=== PATIENT | female | born 1930 | race Caucasian/White ===

== ENCOUNTER 2018-02-27 12:08 | Inpatient (IN) ==
--- NOTE | 2018-02-27 19:15 | P.HPCC ---
History of Present Illness Service: Critical care medicine Primary Care Physician: UNKNOWN Chief Complaint: shortness of breath History of Present Illness: 87yF with history of CHF, COPD, found to be altered. taken to OSH where she was significantly hypoxic. CT chest/CXR demonstrated dense LLL consolidation. wbc elevated. patient is DNR/DNI and daughter wishes to honor this. placed on BiPAP. given ivf, but persistently hypotensive, so placed on norepinephrine. ROS unobtainable due to her altered mentation. no additional information available from the patient- remainder of the history from the daughter and from medical record. Inpatient Certification: I certify that the inpatient services were ordered in accordance with Medicare regulations governing the order. This includes certification that hospital inpatient services are reasonable and necessary and in the case of services not specified as inpatient-only under 42 CFR 419.22(n), that they are appropriately provided as inpatient services in accordance to with the 2-midnight benchmark under 43 CFR 412.3(e) Review of Systems unobtainable due to mental status PMFSH - History History Provided By: Family Member, Medical Record - Medical History Medical History: Medical History (Last Reviewed 02/27/18 @ 20:38 by Conrad Beckford MD) Anxiety CHF (congestive heart failure) COPD (chronic obstructive pulmonary disease) Epilepsy Hypertension Schizo affective schizophrenia - Surgical History Surgical History: Surgical History (Last Reviewed 02/27/18 @ 20:38 by Conrad Beckford MD) Hx of shoulder surgery - Family History Family History: Family History (Last Updated 02/27/18 @ 20:38 by Conrad Beckford MD) Other Family history non-contributory - Social History I have reviewed the patient's Social History: Yes - Tobacco History Smoking Status: Former smoker - Alcohol History How Often Do You Have a Drink Containing Alcohol: Never - Substance Use History Substance History: No History of Abuse Medications and Allergies Allergies Allergy/AdvReac Type Severity Reaction Status Date / Time No Known Allergies Allergy Verified 02/27/18 12:29 Home Medications Medication Instructions Recorded Confirmed Type acetaminophen [Mapap 500 mg PO DAILY PRN 02/27/18 02/27/18 History (acetaminophen)] amlodipine 10 mg PO DAILY 02/27/18 02/27/18 History citalopram 40 mg PO DAILY 02/27/18 02/27/18 History docusate sodium [Colace] 100 mg PO DAILY 02/27/18 02/27/18 History ferrous sulfate 325 mg PO DAILY 02/27/18 02/27/18 History furosemide 10 mg PO DAILY 02/27/18 02/27/18 History ipratropium bromide 2.5 ml INHALATION Q6-8H PRN 02/27/18 02/27/18 History levetiracetam 750 mg PO BID 02/27/18 02/27/18 History melatonin 3 mg PO HS PRN 02/27/18 02/27/18 History quetiapine [Seroquel] 25 mg PO DAILY 02/27/18 02/27/18 History risperidone [Risperdal] 0.5 mg PO BID 02/27/18 02/27/18 History temazepam 15 mg PO HS 02/27/18 02/27/18 History Exam Vital signs: Vital Signs 02/27/18 18:44 Pulse Oximetry 92 L Intake & Output 02/27/18 02/27/18 02/28/18 06:59 18:59 06:59 Weight 48.8 kg Narrative: GENERAL: Frail elderly female, lying in bed, in respiratory distress. BiPAP in place. HEENT: Normocephalic. Atraumatic. Pupils equal, round, reactive, conjugate. Mucous membranes are dry NECK: Trachea is midline. JVD approximately 3 cm above the clavicle. CHEST: BiPAP in place. Labored and slightly tachypneic. Using accessory muscles. Equal chest rise. CARDIOVASCULAR: Normal rate, regular rhythm. Appears sinus by telemetry. Norepinephrine at 8 mcg/min. ABDOMEN: Soft, nontender, nondistended. No guarding. MUSCULOSKELETAL: Pulses 2+. No peripheral edema. NEUROLOGICAL: RASS -4. Grimaces to painful stimuli. Does not follow commands. Septic Shock Reassessment Septic shock perfusion: reassessment completed Caprini VTE Risk Assessment Caprini VTE Risk Assessment: Moderate/High Risk (score >= 2) Caprini Risk Assessment Model: Point Value = 1 Point Value = 2 Point Value = 3 Point Value = 5 Age 41-60 Minor surgery BMI > 25 kg/m2 Swollen legs Varicose veins or History of unexplained or recurrent spontaneous Oral contraceptives or hormone replacement Sepsis (< 1 month) Serious lung disease, including pneumonia (< 1 month) Abnormal pulmonary function Acute myocardial infarction Congestive heart failure (< 1 month) History of inflammatory bowel disease Medical patient at bed rest Age 61-74 Arthroscopic surgery Major open surgery (> 45 min) Laparoscopic surgery (> 45 min) Malignancy Confined to bed (> 72 hours) Immobilizing plaster cast Central venous access Age >= 75 History of VTE Family history of VTE Factor V Leiden Prothrombin [id number] Lupus anticoagulant Anticardiolipin antibodies Elevated serum homocysteine Heparin-induced thrombocytopenia Other congenital or acquired thrombophilia Stroke (< 1 month) Elective arthroplasty Hip, pelvis, or leg fracture Acute spinal cord injury (< 1 month) Prophylaxis Regimen: Total Risk Factor Score Risk Level Prophylaxis Regimen 0-1 Low Early ambulation 2 Moderate Order ONE of the following: *Sequential Compression Device (SCD) *Heparin 5000 units SQ BID 3-4 Higher Order ONE of the following medications: *Heparin 5000 units SQ TID *Enoxaparin/Lovenox 40 mg SQ daily (WT < 150 kg, CrCl > 30 mL/min) *Enoxaparin/Lovenox 30 mg SQ daily (WT < 150 kg, CrCl > 10-29 mL/min) *Enoxaparin/Lovenox 30 mg SQ BID (WT < 150 kg, CrCl > 30 mL/min) AND/OR *Sequential Compression Device (SCD) 5 or more Highest Order ONE of the following medications: *Heparin 5000 units SQ TID (Preferred with Epidurals) *Enoxaparin/Lovenox 40 mg SQ daily (WT < 150 kg, CrCl > 30 mL/min) *Enoxaparin/Lovenox 30 mg SQ daily (WT < 150 kg, CrCl > 10-29 mL/min) *Enoxaparin/Lovenox 30 mg SQ BID (WT < 150 kg, CrCl > 30 mL/min) AND *Sequential Compression Device (SCD) Assessment and Plan - Assessment and Plan Plan: Assessment: 87-year-old female with multiple chronic medical comorbidities including COPD and CHF who presents with severe community-acquired left lower lobe pneumonia and associated septic shock, hypoxic respiratory failure, metabolic encephalopathy. Very critically ill. I expressed my concern to the daughter that she may not survive this hospitalization given her acute on chronic medical comorbidities. The daughter wishes to honor the patient's DNR/ DNI CODE STATUS, which I agree with. We will continue noninvasive positive pressure ventilation, antibiotics, fluids, vasopressors. Active problems: Acute metabolic encephalopathy Septic shock Community acquired left lower lobe pneumonia Acute hypoxic respiratory failure requiring noninvasive positive pressure ventilation COPD CHF, unknown type Plan: Admit to ICU Frequent neurochecks Avoid long-acting sedatives Continue BiPAP Continue DNR DNI CODE STATUS Wean FiO2 for goal SPO2 greater than 90% Vancomycin with pharmacy dosing Continue Zosyn Add azithromycin for atypical coverage Follow blood cultures Check sputum culture IV fluids Continue Levophed for goal map greater than 65 Palliative care consultation N.p.o. SCDs Subcu heparin Pepcid Nebs Critically ill. This patient remains critically ill with one or more organ systems which are or may become a threat to life. I have spent in excess of 47 minutes discontinuously in the care and management of this patient. This time is exclusive of procedures, and includes, but is not limited to, evaluation of the patient, review of the medical record, discussions with family, consultants, nursing staff, or respiratory therapy, and documentation in the medical record.
[2018-02-27] MEDS ORDERED: Magnesium Sulfate Inj 2 GM in Sodium Chlor 0.9% Inj 96 ML IV.SIG PRN (20:17)
[2018-02-27] MEDS ORDERED: HYDROmorphone PF Inj 1 MG/ML Ampul IV.PUSH PRN (20:17)
[2018-02-27] MEDS ORDERED: Sodium Phosphate Inj 30 MMOL in Sodium Chlor 0.9% Inj 250 ML IV.SIG PRN (20:17)
[2018-02-27] MEDS ORDERED: Potassium Phosphate Inj 30 MMOL in Sodium Chlor 0.9% Inj 250 ML IV.SIG PRN (20:17)
[2018-02-27] MEDS ORDERED: Potassium Chloride 25 MEQ Effervescent Tablet PO PRN (20:17)
[2018-02-27] MEDS ORDERED: Bisacodyl 10 MG Supp RECTAL PRN (20:17)
[2018-02-27] MEDS ORDERED: Magnesium Oxide 400 MG Tablet PO PRN (20:17)
[2018-02-27] MEDS ORDERED: Dextrose 50% in Water 50 ML Vial IV.PUSH PRN (20:17)
[2018-02-27] MEDS ORDERED: Magnesium Sulfate Inj 4 GM in Sodium Chlor 0.9% Inj 92 ML IV.SIG PRN (20:17)
[2018-02-27] MEDS ORDERED: Potassium Chlor 40 mEq Premix 40 MEQ/100 ML PIGGYBACK IV.SIG PRN ×2 (20:17)
[2018-02-27] MEDS ORDERED: Potassium Phosphate 500 MG Soluble Tablet PO PRN ×2 (20:17)
[2018-02-27] MEDS ORDERED: Potassium Chlor 20 mEq Premix 20 MEQ/100 ML PIGGYBACK IV.SIG PRN ×2 (20:17)
[2018-02-27] MEDS ORDERED: Famotidine PF Inj 20 MG/2 ML Vial IV.PUSH SCH (21:00)
[2018-02-27] MEDS: Sod Chloride 0.9% Inj 1,000 ML IV.CONT SCH (21:41)
[2018-02-27] MEDS: Azithromycin Inj 500 MG in Sodium Chlor 0.9% Inj 250 ML IV.SIG SCH (21:41)
[2018-02-27] MEDS: Piperacil/Tazo 4.5 GM Premix 4.5 GM/100 ML BAG IV.SIG SCH (21:41)
[2018-02-27] MEDS: Polyethylene Glycol 3350 17 GM Packet PO SCH (21:42)
[2018-02-27] MEDS: Heparin - SQ 10,000 UNITS/ML Vial SQ SCH (21:42)
[2018-02-27] MEDS: Senna/Docusate Sodium 8.6/50 MG Tablet PO SCH (21:43)
[2018-02-27] MEDS: Insulin NovoLIN Regular Correctional Sugar Inj SQ SCH (23:54)
[2018-02-28] MEDS ORDERED: Chlorhexidine Gluconate 2% 1 Pack (2 Cloths) TOPICAL PRN ×2 (04:00)
[2018-02-28] MEDS: Piperacil/Tazo 4.5 GM Premix 4.5 GM/100 ML BAG IV.SIG SCH ×4 (04:08→21:41)
[2018-02-28] MEDS: Chlorhexidine Gluconate 2% 1 Pack (2 Cloths) TOPICAL SCH ×2 (04:09)
[2018-02-28 04:16] LABS: Baso % (Auto) 0.2 % (0.0-2.0); Eos % (Auto) 0.1 % (0.0-4.0); Hematocrit 28.6 % (35.0-46.0); Hemoglobin 9.1 gm/dL (11.6-15.3); Lymph # (Auto) 0.5 th/mm3 (1.0-4.8); Lymph % (Auto) 4.2 % (9.0-44.0); Mean Corpuscular Hemoglobin 30.7 pg (27.0-34.0); Mean Corpuscular Volume 96.2 fL (80.0-100.0); Mean Platelet Volume 7.7 fL (7.0-11.0); Mono # (Auto) 0.6 th/mm3 (0.0-0.9); Mono % (Auto) 5.2 % (0.0-8.0); Neut # (Auto) 10.1 th/mm3 (1.8-7.7); Neut % (Auto) 90.3 % (16.0-70.0); Platelet Count 211 th/mm3 (150-450); Red Blood Count 2.97 mil/mm3 (4.00-5.30); Red Cell Distribution Width 15.3 % (11.6-17.2); White Blood Count 11.1 th/mm3 (4.0-11.0)
[2018-02-28 05:01] LABS: Calcium 7.4 mg/dL (8.5-10.1); Carbon Dioxide 30.2 meq/L (21.0-32.0); Magnesium 1.8 mg/dL (1.5-2.5); Phosphorus 2.7 mg/dL (2.5-4.9); Potassium 4.1 meq/L (3.5-5.1)
[2018-02-28 05:27] LABS: Albumin 2.2 g/dL (3.4-5.0); Calcium-Albumin Corrected 8.8 mg/dL (8.5-10.1)
[2018-02-28] MEDS: Sod Chloride 0.9% Inj 1,000 ML IV.CONT SCH (05:39)
[2018-02-28] MEDS: Insulin NovoLIN Regular Correctional Sugar Inj SQ SCH ×3 (05:40→17:55)
[2018-02-28] MEDS: Heparin - SQ 10,000 UNITS/ML Vial SQ SCH ×3 (05:40→21:41)
--- NOTE | 2018-02-28 05:56 | P.PNCC ---
Subjective Subjective Remarks/Hospital Course: 87yF with history of CHF, COPD, found to be altered. taken to OSH where she was significantly hypoxic. CT chest/CXR demonstrated dense LLL consolidation. wbc elevated. patient is DNR/DNI and daughter wishes to honor this. placed on BiPAP. given ivf, but persistently hypotensive, so placed on norepinephrine. ROS unobtainable due to her altered mentation. no additional information available from the patient- remainder of the history from the daughter and from medical record. Subjective 02/28: Resting in bed in no acute distress. Currently on Venturi mask 50%. Was on intermittent BiPAP overnight with FiO2 70%. Intermittently confused. Understands [place]. Objective Vital Signs / I&O: Vital Signs 02/27/18 18:44 02/27/18 19:56 02/27/18 20:00 Temperature 97.2 F L Pulse Rate 53 L Respiratory Rate 20 Blood Pressure 106/53 L Pulse Oximetry 92 L 96 94 L 02/27/18 21:00 02/27/18 22:00 02/27/18 23:00 Temperature Pulse Rate 55 L 67 66 Respiratory Rate 21 20 19 Blood Pressure 111/51 L 117/59 L 96/49 L Pulse Oximetry 93 L 93 L 95 02/27/18 23:30 02/27/18 23:31 02/27/18 23:45 Temperature Pulse Rate 64 62 Respiratory Rate 8 L 9 L Blood Pressure 92/46 L 89/43 L Pulse Oximetry 95 95 02/27/18 23:52 02/28/18 00:00 02/28/18 00:15 Temperature 100 F H Pulse Rate 68 81 64 Respiratory Rate 18 24 14 Blood Pressure 107/53 L 94/47 L Pulse Oximetry 92 L 91 L 95 02/28/18 00:30 02/28/18 00:45 02/28/18 01:00 Temperature Pulse Rate 64 64 65 Respiratory Rate 17 11 L 9 L Blood Pressure 101/50 L 105/53 L 107/53 L Pulse Oximetry 96 97 96 02/28/18 01:15 02/28/18 01:30 02/28/18 01:45 Temperature Pulse Rate 65 69 74 Respiratory Rate 10 L 4 L 14 Blood Pressure 104/52 L 117/55 L 108/55 L Pulse Oximetry 96 97 97 02/28/18 02:00 02/28/18 02:15 02/28/18 02:30 Temperature Pulse Rate 76 76 73 Respiratory Rate 14 11 L 18 Blood Pressure 118/56 L 124/56 L 117/57 L Pulse Oximetry 98 97 97 02/28/18 02:45 02/28/18 03:00 02/28/18 03:15 Temperature Pulse Rate 71 74 67 Respiratory Rate 15 19 18 Blood Pressure 116/57 L 107/53 L 110/49 L Pulse Oximetry 95 96 96 02/28/18 03:30 02/28/18 03:45 02/28/18 03:46 Temperature Pulse Rate 74 80 Respiratory Rate 31 H 30 H Blood Pressure 104/58 L 98/55 L Pulse Oximetry 97 98 98 02/28/18 03:47 02/28/18 04:00 02/28/18 04:15 Temperature 100.7 F H Pulse Rate 75 67 74 Respiratory Rate 13 14 25 H Blood Pressure 91/43 L 114/58 L Pulse Oximetry 97 99 02/28/18 04:30 02/28/18 04:45 02/28/18 05:00 Temperature Pulse Rate 72 71 70 Respiratory Rate 23 24 15 Blood Pressure 113/55 L 117/57 L 116/53 L Pulse Oximetry 98 99 98 Intake & Output 02/27/18 02/27/18 02/28/18 06:59 18:59 06:59 Intake Total 1350 / 1350 Balance 1350 / 1350 Weight 48.8 kg Intake: IV 1350 / 1350 NS Inj 1,000 ML @ 120 mls/hr IV 1000 / 1000 .CONT .Q8H20M [facility] Rx#:[id number] Azithromycin Inj 500 MG In NS 250 / 250 Inj 250 ML @ 250 mls/hr IV.SIG Q24H [facility] Rx#:[id number] Zosyn 4.5 GM Premix 4.5 gm In 100 / 100 100 ml @ 200 mls/hr IV.SIG Q6H [facility] Rx#:[id number] Result Diagrams: 02/28/18 04:00 02/28/18 04:00 Objective Remarks: GENERAL: This is an 87-year-old female currently resting in bed on Venturi mask in no acute distress SKIN: No rash. Dry. Cool extremities without mottling HEAD: Atraumatic. Normocephalic. EYES: Pupils equal and round about 3 mm bilaterally and reactive. No scleral icterus. No injection or drainage. ENT: No nasal bleeding or discharge. Mucous membranes pink and moist. NECK: Trachea midline. No JVD. CARDIOVASCULAR: Regular rate and rhythm., S2. No S4. No S3. 1/6 systolic murmur [place] sternal RESPIRATORY: No accessory muscle use. Rhonchorous breath sounds throughout all lung samuels anterior and posterior. No wheezing. GASTROINTESTINAL: Abdomen soft, non-tender, nondistended. Hepatic and splenic margins not palpable. Hypoactive bowel sounds appreciated. MUSCULOSKELETAL: Extremities nonpitting bilateral lower extremity edema. No obvious deformities. NEUROLOGICAL: Awake and alert. No obvious cranial nerve deficits. Motor grossly within normal limits. Five out of 5 muscle strength in the arms and legs. Normal speech. Assessment and Plan - Assessment and Plan Plan: Neuro/Psych:\ Schizophrenic disorder NOS Depressive disorder NOS Seizure disorder NOS Continue levetiracetam 750 mg by mouth twice daily/home medication for seizures Seizure precautions written for Continue quetiapine 25 mg daily/home medication for schizoaffective disorder Continue Risperdal 0.5 mg twice daily Holding temazepam 50 mg at night Continue melatonin 3 mg at night for insomnia continue citalopram 40 mg daily for depression Currently hydromorphone 0.2 mg IV every 2 hours as needed breakthrough pain Acetaminophen 650 p.o. every 6 hours as needed fever CV: Severe septic shock Congestive heart failure unknown etiology History of essential hypertension Lactic acid pending 2D echocardiogram ordered. Holding home medications of amlodipine 10 mg daily while on vasopressors. Holding furosemide 20 mg daily while on vasopressors. EKG on admission revealed sinus bradycardia with QT prolongation. Previous on normal saline at 120 cc an hour. Resp: Acute respiratory failure secondary to aspiration/community acquired pneumonia Chronic obstructive pulmonary disease/severe Currently on oxygen therapy Venturi mask currently to maintain saturations greater than equal to 90% Incentive spirometry while awake PEP therapy every [address] pulmonary angiogram at [place] revealed diffuse bilateral pulmonary infiltrates left greater than right. No central pulmonary embolism. Emphysematous changes. Pulmonary toilet Follow-up on chest x-ray in a.m. 03/01 GI: Moderate protein calorie malnutrition with hypoalbuminemia Currently n.p.o. status. Speech therapy evaluate and treat Pantoprazole for GI prophylaxis Docusate serum/senna 1 tablet twice daily, polyethylene glycol 17 g twice daily and lactulose 30 cc twice daily for bowel regimen : [place]iwick/straight catheterization as needed Endo: Acute hyperglycemia Currently on sliding scale insulin Novulin r medium protocol Accu-Cheks every 6 hours to maintain euglycemia Check TSH Renal: Creatinine currently within normal limit Monitor urine output Accurate I's and O Heme: Leukocytosis Normocytic anemia Monitor CBC daily. Follow trends. No indication for transfusion of blood products at this time. ID: Aspiration/community-acquired pneumonia Day #2 piperacillin/tazobactam and azithromycin. Add vancomycin Blood cultures x2 at [facility] currently pending. Sputum ordered. Influenza a and B ordered. FEN: Replace electrolytes as clinically indicated per ICU l electrolyte protocol Currently on normal saline at 120 cc an hour. MSK: PT/OT evaluate and treat. Access -Right IJ CVL day 2 placed in ED at [facility] 02/27 Prophylaxis -GI -pantoprazole -DVT-SCD/heparin Level 2 follow-up. No critical care time involved. \ Code Status: DNR Discussed Condition With: Patient. [facility] RN. Daughter. Care plan discussed and all questions answered.
[2018-02-28] MEDS ORDERED: Magnesium Sulfate Inj 2 GM in Sodium Chlor 0.9% Inj 96 ML IV.SIG ONE (06:32)
[2018-02-28] MEDS ORDERED: Acetaminophen 325 MG Tablet PO PRN (06:37)
[2018-02-28] MEDS ORDERED: Vancomycin Consult Pharmacy OTHER PRN (06:53)
[2018-02-28] MEDS: Pantoprazole Inj 40 MG Vial IV.PUSH SCH (08:41)
[2018-02-28] MEDS: QUEtiapine 25 MG Tablet PO SCH (08:41)
[2018-02-28] MEDS: Ferrous Sulfate 325 MG Tablet PO SCH (08:41)
[2018-02-28] MEDS: Vancomycin Inj 1,000 MG in Sodium Chlor 0.9% Inj 250 ML IV.SIG SCH (08:41)
[2018-02-28] MEDS: Sodium Chloride 0.9% 2 ML Flush BID IV.FLUSH SCH ×2 (08:42→20:04)
[2018-02-28] MEDS: Senna/Docusate Sodium 8.6/50 MG Tablet PO SCH ×2 (08:42→20:01)
[2018-02-28] MEDS: Polyethylene Glycol 3350 17 GM Packet PO SCH ×2 (08:42→20:03)
[2018-02-28] MEDS: levETIRAcetam 250 MG Tablet PO SCH ×2 (08:42→20:01)
[2018-02-28] MEDS: Azithromycin Inj 500 MG in Sodium Chlor 0.9% Inj 250 ML IV.SIG SCH (20:01)
[2018-03-01] MEDS: Insulin NovoLIN Regular Correctional Sugar Inj SQ SCH ×5 (00:06→23:30)
[2018-03-01] MEDS: Piperacil/Tazo 4.5 GM Premix 4.5 GM/100 ML BAG IV.SIG SCH ×4 (04:57→23:29)
[2018-03-01] MEDS: Chlorhexidine Gluconate 2% 1 Pack (2 Cloths) TOPICAL SCH ×2 (04:57)
[2018-03-01] MEDS: Heparin - SQ 10,000 UNITS/ML Vial SQ SCH ×3 (04:59→22:14)
[2018-03-01 05:40] LABS: Baso % (Auto) 0.4 % (0.0-2.0); Eos # (Auto) 0.1 th/mm3 (0.0-0.4); Hematocrit 26.5 % (35.0-46.0); Hemoglobin 8.7 gm/dL (11.6-15.3); Lymph # (Auto) 0.6 th/mm3 (1.0-4.8); Lymph % (Auto) 11.3 % (9.0-44.0); Mean Corpuscular HGB Conc 32.9 % (32.0-36.0); Mean Corpuscular Hemoglobin 31.1 pg (27.0-34.0); Mean Corpuscular Volume 94.6 fL (80.0-100.0); Mono # (Auto) 0.6 th/mm3 (0.0-0.9); Mono % (Auto) 10.1 % (0.0-8.0); Neut # (Auto) 4.3 th/mm3 (1.8-7.7); Neut % (Auto) 77.2 % (16.0-70.0); Platelet Count 163 th/mm3 (150-450); Red Cell Distribution Width 15.3 % (11.6-17.2); White Blood Count 5.5 th/mm3 (4.0-11.0)
--- NOTE | 2018-03-01 05:49 | XR ---
EXAM DATE: 03/01/2018 5:41 AM EST AGE/SEX: 87 years / Female INDICATIONS: Shortness of breath. CLINICAL DATA: This is the patient's subsequent encounter. Patient reports that signs and symptoms h ave been present for 2 days and indicates a pain score of Nonresponsive. MEDICAL/SURGICAL HISTORY: Congestive heart failure. Chronic obstructive pulmonary disease. Hy pertension. Anxiety. Epilepsy. Schizophrenia. . shoulder surgery. COMPARISON: [facility], CHEST 1V SINGLE AP, 02/27/2018. . FINDINGS: The right internal jugular central line is well placed. The heart size is normal. There is increased density at the mid and lower left lung with silhouetting the left hemidiaphragm. There is milder incr eased density at the right base. CONCLUSION: Suspected mid and lower left lung atelectasis or consolidation with a left effusion. Minimal atelectasis or consolidation at the right base. Electronically signed by: Lonnie Cardenas MD Board Certified Radiologist 03/01/2018 5:48 AM EST
[2018-03-01 05:50] LABS: Prothrombin Time 10.4 sec (9.8-11.6)
[2018-03-01 06:11] LABS: Albumin 2.5 g/dL (3.4-5.0); Anion Gap 6 meq/L (5-15); Aspartate Aminotransferase 15 U/L (15-37); Blood Urea Nitrogen 11 mg/dL (7-18); Calcium 7.7 mg/dL (8.5-10.1); Carbon Dioxide 30.2 meq/L (21.0-32.0); Chloride 108 meq/L (98-107); Glomerular Filtration Rate Greater Than 89 mL/min (>89); Glucose,Random 95 mg/dL (74-106); Lipase 66 U/L (73-393); Magnesium 2.1 mg/dL (1.5-2.5); Potassium 3.6 meq/L (3.5-5.1); Sodium 144 meq/L (136-145)
[2018-03-01 06:12] LABS: Alanine Aminotransferase 12 U/L (10-53); Phosphorus 2.6 mg/dL (2.5-4.9)
[2018-03-01 06:22] LABS: Alkaline Phosphatase 44 U/L (45-117); Thyroid Stimulating Hormone 0.387 uIU/mL (0.358-3.740); Total Protein 6.2 g/dL (6.4-8.2)
[2018-03-01] MEDS: Vancomycin Inj 1,000 MG in Sodium Chlor 0.9% Inj 250 ML IV.SIG SCH (10:03)
--- NOTE | 2018-03-01 10:57 | P.PNCC ---
Subjective Subjective Remarks/Hospital Course: 87yF with history of CHF, COPD, found to be altered. taken to OSH where she was significantly hypoxic. CT chest/CXR demonstrated dense LLL consolidation. wbc elevated. patient is DNR/DNI and daughter wishes to honor this. placed on BiPAP. given ivf, but persistently hypotensive, so placed on norepinephrine. ROS unobtainable due to her altered mentation. no additional information available from the patient- remainder of the history from the daughter and from medical record. 02/28: Resting in bed in no acute distress. Currently on Venturi mask 50%. Was on intermittent BiPAP overnight with FiO2 70%. Intermittently confused. Understands Japanese. Subjective 03/01: Off vasopressors times 12 hours. Currently on nasal cannula 2 L which is her baseline. Son down last night but better once home medications/ antipsychotics resume. Tolerating diet. Objective Vital Signs / I&O: Vital Signs 02/28/18 11:00 02/28/18 11:20 02/28/18 11:30 Temperature Pulse Rate 69 71 63 Respiratory Rate 12 23 13 Blood Pressure 87/47 L 105/51 L 99/52 L Pulse Oximetry 98 95 97 02/28/18 11:45 02/28/18 12:00 02/28/18 12:01 Temperature 97.8 F Pulse Rate 63 66 66 Respiratory Rate 12 16 16 Blood Pressure 111/56 L 104/53 L Pulse Oximetry 99 95 02/28/18 12:15 02/28/18 12:30 02/28/18 12:45 Temperature Pulse Rate 62 65 67 Respiratory Rate 28 H 22 23 Blood Pressure 100/45 L 97/55 L 106/58 L Pulse Oximetry 100 98 100 02/28/18 13:00 02/28/18 13:25 02/28/18 13:30 Temperature Pulse Rate 58 L 70 79 Respiratory Rate 14 27 H 13 Blood Pressure 104/55 L 101/50 L 101/51 L Pulse Oximetry 99 97 98 02/28/18 13:45 02/28/18 14:00 02/28/18 14:01 Temperature Pulse Rate 73 82 81 Respiratory Rate 5 L 17 26 H Blood Pressure 99/48 L 108/50 L Pulse Oximetry 98 99 98 02/28/18 14:15 02/28/18 14:30 02/28/18 14:45 Temperature Pulse Rate 73 76 74 Respiratory Rate 10 L 27 H 21 Blood Pressure 107/49 L 108/56 L 110/53 L Pulse Oximetry 99 98 02/28/18 15:00 02/28/18 15:06 02/28/18 15:30 Temperature Pulse Rate 70 78 72 Respiratory Rate 27 H 19 20 Blood Pressure 86/35 L 92/54 L 86/46 L Pulse Oximetry 95 99 02/28/18 16:00 02/28/18 16:30 02/28/18 16:42 Temperature 98.9 F Pulse Rate 74 64 68 Respiratory Rate 19 12 16 Blood Pressure 99/50 L 103/51 L Pulse Oximetry 97 99 02/28/18 17:00 02/28/18 17:30 02/28/18 18:00 Temperature Pulse Rate 72 71 80 Respiratory Rate 16 14 28 H Blood Pressure 111/55 L 102/51 L Pulse Oximetry 98 98 96 02/28/18 18:01 02/28/18 18:30 02/28/18 19:00 Temperature Pulse Rate 86 74 66 Respiratory Rate 17 23 13 Blood Pressure 92/53 L 92/44 L 93/50 L Pulse Oximetry 93 L 96 100 02/28/18 19:30 02/28/18 20:00 02/28/18 20:01 Temperature 98 F Pulse Rate 67 71 73 Respiratory Rate 24 17 17 Blood Pressure 95/55 L 95/55 L 113/55 L Pulse Oximetry 100 100 100 02/28/18 20:30 02/28/18 20:31 02/28/18 21:00 Temperature Pulse Rate 77 78 85 Respiratory Rate 19 18 20 Blood Pressure 105/57 L 104/51 L Pulse Oximetry 100 97 99 02/28/18 21:31 02/28/18 21:37 02/28/18 22:00 Temperature Pulse Rate 81 77 70 Respiratory Rate 49 H 19 10 L Blood Pressure 71/53 L 91/48 L 101/52 L Pulse Oximetry 95 100 98 02/28/18 22:31 02/28/18 23:00 02/28/18 23:31 Temperature Pulse Rate 77 72 69 Respiratory Rate 17 20 17 Blood Pressure 96/45 L 113/69 131/49 L Pulse Oximetry 98 99 100 02/28/18 23:43 03/01/18 00:00 03/01/18 00:01 Temperature 97.8 F Pulse Rate 63 65 68 Respiratory Rate 18 19 19 Blood Pressure 108/49 L Pulse Oximetry 95 100 03/01/18 00:36 03/01/18 01:00 03/01/18 01:01 Temperature Pulse Rate 79 70 64 Respiratory Rate 31 H 31 H 14 Blood Pressure 103/61 120/58 L Pulse Oximetry 97 100 100 03/01/18 01:30 03/01/18 02:00 03/01/18 02:01 Temperature Pulse Rate 77 69 67 Respiratory Rate 20 18 15 Blood Pressure 128/58 L 119/55 L Pulse Oximetry 94 L 100 100 03/01/18 02:30 03/01/18 03:00 03/01/18 03:31 Temperature Pulse Rate 80 65 63 Respiratory Rate 20 16 18 Blood Pressure 132/64 131/60 113/53 L Pulse Oximetry 100 100 97 03/01/18 03:32 03/01/18 04:00 03/01/18 04:01 Temperature 97.6 F Pulse Rate 63 75 75 Respiratory Rate 16 27 H 13 Blood Pressure 130/58 L 130/58 L Pulse Oximetry 95 99 03/01/18 04:30 03/01/18 05:00 03/01/18 06:00 Temperature Pulse Rate 72 70 69 Respiratory Rate 15 16 25 H Blood Pressure 107/51 L 100/50 L 120/58 L Pulse Oximetry 100 100 99 03/01/18 06:30 03/01/18 07:29 Temperature Pulse Rate 59 L 63 Respiratory Rate 12 20 Blood Pressure 116/55 L Pulse Oximetry 100 99 Intake & Output 02/28/18 03/01/18 03/01/18 18:59 06:59 18:59 Intake Total 1399 / 1399 650 / 650 Output Total 650 / 650 600 / 600 Balance 749 / 749 50 / 50 Weight 50.9 kg Intake: IV 919 / 919 450 / 450 NS Inj 1,000 ML @ 120 mls/hr IV 359 / 359 .CONT .Q8H20M [facility] Rx#:[id number] Azithromycin Inj 500 MG In NS 250 / 250 Inj 250 ML @ 250 mls/hr IV.SIG Q24H [facility] Rx#:[id number] Magnesium Sulfate Inj 2 GM In 110 / 110 NS Inj 96 ML @ 50 mls/hr IV.SIG ONCE ONE Rx#:[id number] Zosyn 4.5 GM Premix 4.5 gm In 200 / 200 200 / 200 100 ml @ 200 mls/hr IV.SIG Q6H [facility] Rx#:[id number] Vancomycin Inj 1,000 MG In NS 250 / 250 Inj 250 ML @ 250 mls/hr IV.SIG Q24H [facility] Rx#:[id number] Oral 480 / 480 200 / 200 Output: Urine Amount (Catheter) 650 / 650 600 / 600 Indwelling Urethral Catheter 650 / 650 600 / 600 Other: Date of Last Bowel Movement 02/28/18 03/01/18 # Bowel Movements 1 # Incontinent Bowel Movements 6 Result Diagrams: 03/01/18 05:26 03/01/18 05:26 Other Results: Microbiology 02/27/18 22:08 Sputum - Nasal Tracheal Aspirate Gram Stain - Final 02/27/18 22:08 Sputum - Nasal Tracheal Aspirate Sputum Culture - Preliminary Immature growth - reincubate 02/28/18 09:00 Nasal Wash Influenza Types A,B Antigen - Final Negative for FLU A and B antigen Infection due to influenza A or B cannot be ruled out since the antigen present in the sample may be below the detection limit of the test. Imaging: Chest X-Ray 03/01/18 06:00 CONCLUSION: Suspected mid and lower left lung atelectasis or consolidation with a left effusion. Minimal atelectasis or consolidation at the right base. Objective Remarks: GENERAL: This is an 87-year-old female currently resting in bed on nasal cannula in no acute distress SKIN: No rash. Dry. Cool extremities without mottling HEAD: Atraumatic. Normocephalic. EYES: Pupils equal and round about 3 mm bilaterally and reactive. No scleral icterus. No injection or drainage. ENT: No nasal bleeding or discharge. Mucous membranes pink and moist. NECK: Trachea midline. No JVD. CARDIOVASCULAR: Regular rate and rhythm., S2. No S4. No S3. 1/6 systolic murmur [place] sternal RESPIRATORY: No accessory muscle use. Rhonchorous breath sounds throughout all lung samuels anterior and posterior. No wheezing. GASTROINTESTINAL: Abdomen soft, non-tender, nondistended. Hepatic and splenic margins not palpable. Hypoactive bowel sounds appreciated. MUSCULOSKELETAL: Extremities nonpitting bilateral lower extremity edema. No obvious deformities. NEUROLOGICAL: Awake and alert. No obvious cranial nerve deficits. Motor grossly within normal limits. Five out of 5 muscle strength in the arms and legs. Normal speech. Assessment and Plan - Assessment and Plan Plan: Neuro/Psych:\ Schizophrenic disorder NOS Depressive disorder NOS Seizure disorder NOS Continue levetiracetam 750 mg by mouth twice daily/home medication for seizures Seizure precautions written for Continue quetiapine 25 mg daily/home medication for schizoaffective disorder Continue Risperdal 0.5 mg twice daily Holding temazepam 15 mg at night Continue melatonin 3 mg at night for insomnia continue citalopram 40 mg daily for depression Currently hydromorphone 0.2 mg IV every 2 hours as needed breakthrough pain Acetaminophen 650 p.o. every 6 hours as needed fever CV: Severe septic shock Congestive heart failure unknown etiology History of essential hypertension Lactic acid pending 2D echocardiogram ordered. Holding home medications of amlodipine 10 mg daily while on vasopressors. Holding furosemide 20 mg daily while on vasopressors. EKG on admission revealed sinus bradycardia with QT prolongation. Previous on normal saline at 120 cc an hour. Discontinued Resp: Acute respiratory failure secondary to aspiration/community acquired pneumonia Chronic obstructive pulmonary disease/severe Currently on oxygen therapy Venturi mask currently to maintain saturations greater than equal to 90% Incentive spirometry while awake PEP therapy every [address] pulmonary angiogram at [place] revealed diffuse bilateral pulmonary infiltrates left greater than right. No central pulmonary embolism. Emphysematous changes. Pulmonary toilet Follow-up on chest x-ray in a.m. 03/02 GI: Moderate protein calorie malnutrition with hypoalbuminemia Currently very diet Speech therapy evaluate and treat Pantoprazole for GI prophylaxis Docusate serum/senna 1 tablet twice daily, polyethylene glycol 17 g twice daily and lactulose 30 cc twice daily for bowel regimen : [place]/straight catheterization as needed Endo: Acute hyperglycemia Currently on sliding scale insulin Novulin r medium protocol Accu-Cheks every 6 hours to maintain euglycemia Check TSH -0.387 Renal: Creatinine currently within normal limit Monitor urine output Accurate I's and O Heme: Normocytic anemia Monitor CBC daily. Follow trends. No indication for transfusion of blood products at this time. ID: Aspiration/community-acquired pneumonia E. coli UTI Day #3 piperacillin/tazobactam and azithromycin. Add vancomycin Blood cultures x2 at [place] currently pending. Sputum ordered. Influenza a and B ordered. FEN: Replace electrolytes as clinically indicated per ICU l electrolyte protocol Currently on normal saline at 120 cc an hour. Discontinued 03/01 MSK: PT/OT evaluate and treat. Access -Right IJ CVL day 3 placed in ED at [place] [facility] 02/27 continue 02/18+ peripheral IV Prophylaxis -GI -pantoprazole -DVT-SCD/heparin Level 2 follow-up. Stable from critical care medicine. Assign care to hospitalist in a.m. 03/02). \ Code Status: DNR/DNI
--- NOTE | 2018-03-01 11:24 | P.CONPAL ---
Consult Service: Palliative Care Requesting Physician: Conrad Beckford Reason for Consult: a. To assist with evaluation and management of symptoms including: Dyspnea, confusion, at risk for pain b. To assist medical decision maker(s) with: better understanding of current medical conditions; weighing benefits/burdens of medical treatment options; making medical treatment decisions. Primary Care Provider: UNKNOWN History of Present Illness History of Present Illness: Ms. Morrissey is a 87 years old female with a past medical history of chronic obstructive pulmonary disease, congestive heart failure, on 2 L home oxygen, hypertension, anxiety, history of aspiration pneumonia, epilepsy, dementia and schizoaffective schizophrenia. Patient was a transfer from [facility] [place] on 02/27/18. She was found to be altered and was taken to the emergency room where she was noted to be significantly hypoxic. Patient was noted to be hypotensive with a mean arterial pressure in the 50s and hypoxic in the ER. Septic protocol was initiated. Patient was placed on BiPAP. Patient was hypotensive and was started on a norepinephrine infusion. ER course: * Vital signs : 88 F, pulse 85, respirations to 16, BP 99/52, O2 saturation 74% * EKG revealed sinus bradycardia prolonged QT interval. * Laboratory workup revealed WBC 14.3, hemoglobin 11.7, hematocrit 38.1, platelet count 232, PT 9.8, INR 1.0, APTT 27.2, sodium 143, potassium 4.8, BUN/ creatinine 20/0.80, random glucose 98, calcium 8.3, AST 17, ALT 15, troponin less than 0.02, BNP 64, total protein 7.3, albumin 2.8, lipase 78 * Chest CTA demonstrated dense left lower lobe consolidation, chronic lung changes and no evidence of acute pulmonary embolism. Right shoulder joint deformity * Chest x-ray revealed basilar airspace disease, left greater than right. * Patient was made DNR/DNI by her daughter. She was transferred to [facility] on 02/27/18 and was admitted under the care of critical care physician Dr. Beckford. Vital signs upon admission on ICU revealed temperature 97.2F, pulse 53, respirations 20, BP 108/53, O2 saturation 95% on FiO2 65%. Nasal wash on 02/28/18 negative for influenza types A, B antigen. Speech therapy consulted on 02/28/18, recommended pured diet and honey consistency thickened liquids. Laboratory workup today 03/01/18 revealing WBC 5.5, hemoglobin 8.7, hematocrit 26.5, platelet count 163, PT 10.4, INR 1.0, sodium 144, potassium 4.1, BUN/ creatinine 15/0.64, random glucose 94, calcium 7.4, albumin 2.2. Chest x-ray on 03/01/18 revealing suspected mid and lower left lung atelectasis or consolidation with a left effusion and minimal atelectasis or consolidation at the right base. Clinical course complicated with dyspnea, and altered mental status. Palliative care consulted to assist with symptom management and establishment of goals of medical treatment. Patient seen and examined in MICU in the room. Patient is in bed with bilateral upper extremity soft restraints, restless asking her daughter to remove restraints. Patient speaks both Upper Sorbian and Kazakh. Patient oriented to self only. When asked if she was in pain patient says, "my brain hurts". Introduced palliative care to patient's daughter and its role in symptom management and establishment of goals of medical treatment. Obtained psychosocial, past medical history and events leading to this hospitalization. Patient's daughter Blayne Black states that she is patient's DURABLE POWER OF ASSIGNMENT AGENT including healthcare. She will bring copies to the hospital. Patient' s daughter mentioned that her mother has had multiple hospitalizations, lately twice for aspiration pneumonia. She also mentions that her mother has been diagnosed with dementia and has lived in an assisted living since late s. Patient has been wheelchair-bound for the past 4 years with no reports of falls or fracture. She mentioned that her mother has suffered for a long time and she would not want to prolong his suffering by any means. Briefly discussed dementia is a progressive disease. Patient's daughter confirmed that her mother is a DNR/DNI and mentioned that quality of life is very important in regards to your mother's health. She mentions that if patient continues to have aspiration pneumonia, and is not able to swallow without aspiration she would never want a PEG tube placed. Introduced hospice philosophy and benefits. Patient's daughter feels she has reached a point where she should consider transitioning him mother to comfort care only through hospice. At this time she would want to maximize medical treatment while patient is still in the hospital and is interested in transitioning patient to comfort care with hospice at time of medical discharge. Palliative care contact information provided. Patient's daughter appreciative of palliative care visit. Case discussed with bedside RN, sales attendant and Dr. Hong. . Function/Cognitive Trajectory: Patient is a long-term resident at an [facility] in [place]. She has been wheelchair-bound for the past 4 years and is able to propel herself in the wheelchair. She is dependent for all ADLs except feeding herself. Patient' s daughter verbalizes multiple hospitalizations, twice for possible aspiration pneumonia last year and this year. Most of his hospitalizations were at [facility]. Review of Systems Constitutional: Reports fatigue, Reports weakness, Denies fever(s), Denies weight loss Eyes: Denies blurry vision, Denies bulging eyes Ears, Nose, Mouth, and Throat: Denies abnormal hearing, Denies hearing loss, Denies nasal congestion Cardiovascular: Reports shortness of breath, Reports shortness of breath with activity, Reports shortness of breath when lying down, Denies foot swelling, Denies leg swelling Respiratory: Reports chest congestion, Reports shortness of breath, Denies cough Gastrointestinal: Reports difficulty swallowing, Denies black, tarry stools, Denies constipation, Denies nausea, Denies vomiting Genitourinary: Reports urinary incontinence, Denies blood in urine Musculoskeletal: Reports decreased muscle mass, Reports muscle weakness Skin/Breast: Denies skin ulcer, Denies sores, Denies unusual bruising Neurologic: Reports confusion, Reports memory loss Psychiatric: Reports anxiety, Reports confusion, Reports memory loss, Denies change in appetite Endocrine: Denies increased urination Hematologic/Lymphatic: Reports easy bruising Review of system obtained from EMR, family and clinical observation. . [facility] - History History Provided By: Family Member, Medical Record - Medical History Medical History: Medical History (Last Reviewed 02/28/18 @ 09:20 by Kim Calderon Finger Lift Operator, BED SETTER) Anxiety CHF (congestive heart failure) COPD (chronic obstructive pulmonary disease) Epilepsy Hypertension Schizo affective schizophrenia - Surgical History Surgical History: Surgical History (Last Updated 03/01/18 @ 14:35 by Gary Benitez) History of appendectomy Hx of shoulder surgery - Family History Family History: Family History (Last Updated 03/01/18 @ 14:37 by Gary Benitez) Other Family history non-contributory Family history of cancer - Social History I have reviewed the patient's Social History: Yes - Tobacco History Second Hand Smoke Exposure: No Tobacco Use In Past 30 Days: No Smoking Status: Former smoker Tobacco Type: Cigarettes - Alcohol History How Often Do You Have a Drink Containing Alcohol: Never - Substance Use History Substance History: No History of Abuse - Immunization History Tetanus Immunization: Never Vaccinated Hx Influenza Vaccine This Season: No Medications and Allergies Active Medications: Active Medications Acetaminophen (Tylenol) 650 mg PO Q6H PRN PRN Reason: FEVER Albuterol (Duoneb Neb (Jasvir)) 1 ampul NEB Q4HR NEB [facility] Last Admin: 03/01/18 07:29 Dose: 1 ampul Albuterol (Albuterol Neb (Prn)) 2.5 mg NEB Q2HR NEB PRN PRN Reason: DYSPNEA Bisacodyl (Dulcolax Supp) 10 mg RECTAL DAILY PRN PRN Reason: if no BM in last 24h Chlorhexidine Gluconate (Chlorhexidine 2% Cloth) 3 pack TOPICAL DAILY@0400 [facility] Stop: 03/05/18 03:59 Last Admin: 03/01/18 04:57 Dose: 3 pack Chlorhexidine Gluconate (Chlorhexidine 2% Cloth) 3 pack TOPICAL DAILY@0400 PRN PRN Reason: Extra cloth needed Stop: 03/05/18 03:59 Chlorhexidine Gluconate (Chlorhexidine 2% Cloth) 3 pack TOPICAL DAILY@0400 [facility] Stop: 03/05/18 03:59 Last Admin: 03/01/18 04:57 Dose: Not Given Chlorhexidine Gluconate (Chlorhexidine 2% Cloth) 3 pack TOPICAL DAILY@0400 PRN PRN Reason: Extra cloth needed Stop: 03/05/18 03:59 Citalopram Hydrobromide (Celexa) 40 mg PO DAILY [facility] Last Admin: 02/28/18 14:54 Dose: 40 mg Dextrose (D50w Vial) 50 ml IV.PUSH UNSCH PRN PRN Reason: PER HYPOGLYCEMIA PROTOCOL Ferrous Sulfate (Ferosul) 325 mg PO DAILY [facility] Last Admin: 02/28/18 08:41 Dose: 325 mg Glucagon (Glucagon Inj) 1 mg OTHER PRN PRN PRN Reason: for Hypoglycemia Protocol Heparin Sodium (Porcine) (Heparin Inj) 5,000 units SQ Q8HR [facility] Last Admin: 03/01/18 04:59 Dose: 5,000 units Hydromorphone HCl (Dilaudid Pf Inj) 0.25 mg IV.PUSH Q1H PRN PRN Reason: pain 8-10 or not taking po Azithromycin 500 mg/ Sodium (Chloride) 250 mls @ 250 mls/hr IV.SIG Q24H [facility] Last Infusion: 02/28/18 21:01 Dose: Infused Magnesium Sulfate 2 gm/ Sodium (Chloride) 100 mls @ 50 mls/hr IV.SIG UNSCH PRN PRN Reason: For Magnesium 1.2 - 1.6 mg/dL Potassium Chloride (Kcl 40 Meq Premix Inj) 40 meq in 100 mls @ 25 mls/hr IV.SIG Q2H PRN PRN Reason: For Potassium 2.8 - 3.2 mEq/L Potassium Chloride (Kcl 40 Meq Premix Inj) 40 meq in 100 mls @ 25 mls/hr IV.SIG UNSCH PRN PRN Reason: For Potassium 3.3 - 3.5 mEq/L Potassium Chloride (Kcl 20 Meq Premix Inj) 20 meq in 100 mls @ 50 mls/hr IV.SIG Q2H PRN PRN Reason: For Potassium 2.8 - 3.2 mEq/L Potassium Phosphate 30 mmol/ (Sodium Chloride) 260 mls @ 42 mls/hr IV.SIG UNSCH PRN PRN Reason: SEE LABEL COMMENTS Sodium Phosphate 30 mmol/ (Sodium Chloride) 260 mls @ 42 mls/hr IV.SIG UNSCH PRN PRN Reason: For Phosphorus < 2.5 mg/dL Magnesium Sulfate 4 gm/ Sodium (Chloride) 100 mls @ 50 mls/hr IV.SIG UNSCH PRN PRN Reason: For Magnesium 0.9 - 1.1 mg/dL Potassium Chloride (Kcl 20 Meq Premix Inj) 20 meq in 100 mls @ 50 mls/hr IV.SIG Q2H PRN PRN Reason: For Potassium 3.3 - 3.5 mEq/L Piperacillin/Tazobactam/Dextrose (Zosyn 4.5 Gm Premix) 4.5 gm in 100 mls @ 200 mls/hr IV.SIG Q6H [facility] Last Infusion: 03/01/18 05:27 Dose: Infused Vancomycin HCl 1,000 mg/ (Sodium Chloride) 250 mls @ 250 mls/hr IV.SIG Q24H [facility] Last Admin: 03/01/18 10:03 Dose: 250 mls/hr Insulin Human Regular (Novolin R Correctional Sugar Inj) 0 units SQ Q6HR [facility]; Protocol Last Admin: 03/01/18 07:31 Dose: Not Given Lactulose (Lactulose Liq) 30 ml PO BID [facility] Last Admin: 02/28/18 20:03 Dose: Not Given Levetiracetam (Keppra) 750 mg PO BID [facility] Last Admin: 02/28/18 20:01 Dose: 750 mg Magnesium Oxide (Mag-Ox) 800 mg PO UNSCH PRN PRN Reason: For Magnesium 1.2 - 1.6 mg/dL Melatonin (Melatonin) 5 mg PO HS PRN PRN Reason: Sleep Miscellaneous Information ([facility] Ordered Lab Info) 0 each OTHER ONCE ONE Stop: 03/03/18 07:46 Ondansetron HCl (Zofran Inj) 4 mg IV.PUSH Q6H PRN PRN Reason: NAUSEA OR VOMITING Pantoprazole Sodium (Protonix Inj) 40 mg IV.PUSH Q24H [facility] Last Admin: 02/28/18 08:41 Dose: 40 mg Pharmacy Profile Note (Vancomycin Consult Pharmacy) 1 each OTHER UNSCH PRN PRN Reason: Pharmacy to dose Polyethylene Glycol (Miralax) 17 gm PO BID [facility] Last Admin: 02/28/18 20:03 Dose: Not Given Potassium Bicarb/Potassium Chloride (K-Lyte Cl Eff) 50 meq PO UNSCH PRN PRN Reason: For Potassium 3.3 - 3.5 mEq/L Potassium Phosphate (K-Phos Original) 2,000 mg PO Q4H PRN PRN Reason: Phosphorus Less Than 2.5 mg/dL Potassium Phosphate (K-Phos Original) 2,000 mg PO UNSCH PRN PRN Reason: SEE LABEL COMMENTS Quetiapine Fumarate (Seroquel) 25 mg PO DAILY [facility] Last Admin: 02/28/18 08:41 Dose: 25 mg Risperidone (Risperdal) 0.5 mg PO BID [facility] Last Admin: 02/28/18 20:01 Dose: 0.5 mg Senna/Docusate Sodium (Renetta-Colace) 1 tab PO BID [facility] Last Admin: 02/28/18 20:01 Dose: Not Given Sodium Chloride (Ns Flush) 2 ml IV.FLUSH UNSCH PRN PRN Reason: FLUSH AFTER USING IV ACCESS Last Admin: 02/27/18 21:42 Dose: 2 ml Sodium Chloride (Ns Flush) 2 ml IV.FLUSH BID [facility] Last Admin: 02/28/18 20:04 Dose: 2 ml Allergies Allergy/AdvReac Type Severity Reaction Status Date / Time No Known Allergies Allergy Verified 02/27/18 12:29 Home Medications Medication Instructions Recorded Confirmed Type acetaminophen [Mapap 500 mg PO DAILY PRN 02/27/18 02/27/18 History (acetaminophen)] amlodipine 10 mg PO DAILY 02/27/18 02/27/18 History citalopram 40 mg PO DAILY 02/27/18 02/27/18 History docusate sodium [Colace] 100 mg PO DAILY 02/27/18 02/27/18 History ferrous sulfate 325 mg PO DAILY 02/27/18 02/27/18 History furosemide 10 mg PO DAILY 02/27/18 02/27/18 History ipratropium bromide 2.5 ml INHALATION Q6-8H PRN 02/27/18 02/27/18 History levetiracetam 750 mg PO BID 02/27/18 02/27/18 History melatonin 3 mg PO HS PRN 02/27/18 02/27/18 History quetiapine [Seroquel] 25 mg PO DAILY 02/27/18 02/27/18 History risperidone [Risperdal] 0.5 mg PO BID 02/27/18 02/27/18 History temazepam 15 mg PO HS 02/27/18 02/27/18 History Advance Directives Living Will: No Healthcare Surrogate: Yes Power of Beef Killer: Yes Power of Beef Killer Name: Stated DPOA: Blayne Black [phone] Power of Beef Killer Relationship to Patient: Children Family/friends goals: Patient daughter would like to maximize medical treatment during this hospitalization and have patient transition to comfort care only through hospice services at time of discharge. . Ethical and Legal Issues: None identified at this time. . Physical Exam Vital Signs: Vital Signs - 24 hr 02/28/18 11:20 02/28/18 11:30 02/28/18 11:45 Temperature Pulse Rate 71 63 63 Respiratory Rate 23 13 12 Blood Pressure 105/51 L 99/52 L 111/56 L Pulse Oximetry 95 97 99 02/28/18 12:00 02/28/18 12:01 02/28/18 12:15 Temperature 97.8 F Pulse Rate 66 66 62 Respiratory Rate 16 16 28 H Blood Pressure 104/53 L 100/45 L Pulse Oximetry 95 100 02/28/18 12:30 02/28/18 12:45 02/28/18 13:00 Temperature Pulse Rate 65 67 58 L Respiratory Rate 22 23 14 Blood Pressure 97/55 L 106/58 L 104/55 L Pulse Oximetry 98 100 99 02/28/18 13:25 02/28/18 13:30 02/28/18 13:45 Temperature Pulse Rate 70 79 73 Respiratory Rate 27 H 13 5 L Blood Pressure 101/50 L 101/51 L 99/48 L Pulse Oximetry 97 98 98 02/28/18 14:00 02/28/18 14:01 02/28/18 14:15 Temperature Pulse Rate 82 81 73 Respiratory Rate 17 26 H 10 L Blood Pressure 108/50 L 107/49 L Pulse Oximetry 99 98 99 02/28/18 14:30 02/28/18 14:45 02/28/18 15:00 Temperature Pulse Rate 76 74 70 Respiratory Rate 27 H 21 27 H Blood Pressure 108/56 L 110/53 L 86/35 L Pulse Oximetry 98 95 02/28/18 15:06 02/28/18 15:30 02/28/18 16:00 Temperature 98.9 F Pulse Rate 78 72 74 Respiratory Rate 19 20 19 Blood Pressure 92/54 L 86/46 L 99/50 L Pulse Oximetry 99 97 02/28/18 16:30 02/28/18 16:42 02/28/18 17:00 Temperature Pulse Rate 64 68 72 Respiratory Rate 12 16 16 Blood Pressure 103/51 L 111/55 L Pulse Oximetry 99 98 02/28/18 17:30 02/28/18 18:00 02/28/18 18:01 Temperature Pulse Rate 71 80 86 Respiratory Rate 14 28 H 17 Blood Pressure 102/51 L 92/53 L Pulse Oximetry 98 96 93 L 02/28/18 18:30 02/28/18 19:00 02/28/18 19:30 Temperature Pulse Rate 74 66 67 Respiratory Rate 23 13 24 Blood Pressure 92/44 L 93/50 L 95/55 L Pulse Oximetry 96 100 100 02/28/18 20:00 02/28/18 20:01 02/28/18 20:30 Temperature 98 F Pulse Rate 71 73 77 Respiratory Rate 17 17 19 Blood Pressure 95/55 L 113/55 L 105/57 L Pulse Oximetry 100 100 100 02/28/18 20:31 02/28/18 21:00 02/28/18 21:31 Temperature Pulse Rate 78 85 81 Respiratory Rate 18 20 49 H Blood Pressure 104/51 L 71/53 L Pulse Oximetry 97 99 95 02/28/18 21:37 02/28/18 22:00 02/28/18 22:31 Temperature Pulse Rate 77 70 77 Respiratory Rate 19 10 L 17 Blood Pressure 91/48 L 101/52 L 96/45 L Pulse Oximetry 100 98 98 02/28/18 23:00 02/28/18 23:31 02/28/18 23:43 Temperature Pulse Rate 72 69 63 Respiratory Rate 20 17 18 Blood Pressure 113/69 131/49 L Pulse Oximetry 99 100 03/01/18 00:00 03/01/18 00:01 03/01/18 00:36 Temperature 97.8 F Pulse Rate 65 68 79 Respiratory Rate 19 19 31 H Blood Pressure 108/49 L 103/61 Pulse Oximetry 95 100 97 03/01/18 01:00 03/01/18 01:01 03/01/18 01:30 Temperature Pulse Rate 70 64 77 Respiratory Rate 31 H 14 20 Blood Pressure 120/58 L 128/58 L Pulse Oximetry 100 100 94 L 03/01/18 02:00 03/01/18 02:01 03/01/18 02:30 Temperature Pulse Rate 69 67 80 Respiratory Rate 18 15 20 Blood Pressure 119/55 L 132/64 Pulse Oximetry 100 100 100 03/01/18 03:00 03/01/18 03:31 03/01/18 03:32 Temperature Pulse Rate 65 63 63 Respiratory Rate 16 18 16 Blood Pressure 131/60 113/53 L Pulse Oximetry 100 97 03/01/18 04:00 03/01/18 04:01 03/01/18 04:30 Temperature 97.6 F Pulse Rate 75 75 72 Respiratory Rate 27 H 13 15 Blood Pressure 130/58 L 130/58 L 107/51 L Pulse Oximetry 95 99 100 03/01/18 05:00 03/01/18 06:00 03/01/18 06:30 Temperature Pulse Rate 70 69 59 L Respiratory Rate 16 25 H 12 Blood Pressure 100/50 L 120/58 L 116/55 L Pulse Oximetry 100 99 100 03/01/18 07:29 Temperature Pulse Rate 63 Respiratory Rate 20 Blood Pressure Pulse Oximetry 99 I&O: Intake & Output 02/27/18 02/28/18 03/01/18 03/02/18 06:59 06:59 06:59 06:59 Intake Total 1700 / 1700 2049 / 2049 Output Total 1250 / 1250 Balance 1700 / 1700 799 / 799 Weight 48.8 kg 50.9 kg Physical Exam: CONSTITUTIONAL/GENERAL: This is an elderly patient, restless in bilateral upper extremity restraints. TUBES/LINES/DRAINS: Triple-lumen catheter right IJ, Álvarez catheter, bilateral upper extremity soft restraints SKIN: No jaundice, rashes, or lesions. Ecchymoses on upper extremities. No wounds seen anteriorly. Skin temperature appropriate. Not diaphoretic. HEAD: Atraumatic. Normocephalic. EYES: Pupils equal and round and reactive. Extraocular motions intact. No scleral icterus. No injection or drainage. Fundi not examined. ENT: Hearing grossly normal. Nose without bleeding or purulent drainage. Moist oral mucosa NECK: Trachea midline. Supple, nontender. CARDIOVASCULAR: Regular rate and rhythm without murmurs, gallops, or rubs. No JVD. Peripheral pulses symmetric. RESPIRATORY/CHEST: Symmetric, unlabored respirations. Clear to auscultation. Breath sounds equal bilaterally. No wheezes, rales, or rhonchi. GASTROINTESTINAL: Abdomen soft, non-tender, nondistended. No guarding. Bowel sounds present. GENITOURINARY: Without palpable bladder distension. Álvarez catheter in place. MUSCULOSKELETAL: Extremities without clubbing, cyanosis, or edema. No joint tenderness or effusion noted. No calf tenderness. No mottling or clubbing. LYMPHATICS: Did not assess NEUROLOGICAL: Awake and alert. Motor and sensory grossly within normal limits. Follows commands. Cognitively sharp. Moves all extremities. PSYCHIATRIC: Confused, restless. Diagnostic Tests Laboratory: Laboratory Results - last 72 hr 02/27/18 02/27/18 02/27/18 18:50 19:15 23:51 WBC RBC Hgb Hct MCV MCH MCHC RDW Plt Count MPV Neut % (Auto) Lymph % (Auto) [place] % (Auto) Eos % (Auto) Baso % (Auto) Neut # (Auto) Lymph # (Auto) [place] # (Auto) Eos # (Auto) Baso # (Auto) WBC Differential Differential Comment PT INR Sodium Potassium Chloride Carbon Dioxide Anion Gap BUN Creatinine Estimated GFR POC Glucose 141 H 120 H Random Glucose Lactic Acid Calcium Calcium Adj for Albumin Phosphorus Magnesium Total Bilirubin AST ALT Alkaline Phosphatase Ammonia Total Protein Albumin Lipase TSH Nasal Screen MRSA (PCR) Not detected 02/28/18 02/28/18 02/28/18 04:00 04:00 05:38 WBC 11.1 H RBC 2.97 L Hgb 9.1 L D Hct 28.6 L MCV 96.2 D MCH 30.7 MCHC 32.0 RDW 15.3 Plt Count 211 MPV 7.7 Neut % (Auto) 90.3 H Lymph % (Auto) 4.2 L [place] % (Auto) 5.2 Eos % (Auto) 0.1 Baso % (Auto) 0.2 Neut # (Auto) 10.1 H Lymph # (Auto) 0.5 L [place] # (Auto) 0.6 Eos # (Auto) 0.0 Baso # (Auto) 0.0 WBC Differential . Differential Comment Auto diff final PT INR Sodium 144 Potassium 4.1 Chloride 108 H Carbon Dioxide 30.2 Anion Gap 6 BUN 15 Creatinine 0.64 Estimated GFR 88 L POC Glucose 98 Random Glucose 94 Lactic Acid Calcium 7.4 L* D Calcium Adj for Albumin 8.8 Phosphorus 2.7 Magnesium 1.8 Total Bilirubin AST ALT Alkaline Phosphatase Ammonia Total Protein Albumin 2.2 L D Lipase TSH Nasal Screen MRSA (PCR) 02/28/18 02/28/18 03/01/18 12:02 17:50 00:05 WBC RBC Hgb Hct MCV MCH MCHC RDW Plt Count MPV Neut % (Auto) Lymph % (Auto) [place] % (Auto) Eos % (Auto) Baso % (Auto) Neut # (Auto) Lymph # (Auto) [place] # (Auto) Eos # (Auto) Baso # (Auto) WBC Differential Differential Comment PT INR Sodium Potassium Chloride Carbon Dioxide Anion Gap BUN Creatinine Estimated GFR POC Glucose 122 H 94 86 Random Glucose Lactic Acid Calcium Calcium Adj for Albumin Phosphorus Magnesium Total Bilirubin AST ALT Alkaline Phosphatase Ammonia Total Protein Albumin Lipase TSH Nasal Screen MRSA (PCR) 03/01/18 03/01/18 03/01/18 05:26 05:26 05:26 WBC 5.5 RBC 2.80 L Hgb 8.7 L Hct 26.5 L MCV 94.6 MCH 31.1 MCHC 32.9 RDW 15.3 Plt Count 163 MPV 8.0 Neut % (Auto) 77.2 H Lymph % (Auto) 11.3 [place] % (Auto) 10.1 H Eos % (Auto) 1.0 Baso % (Auto) 0.4 Neut # (Auto) 4.3 Lymph # (Auto) 0.6 L [place] # (Auto) 0.6 Eos # (Auto) 0.1 Baso # (Auto) 0.0 WBC Differential . Differential Comment Auto diff final PT 10.4 INR 1.0 Sodium 144 Potassium 3.6 Chloride 108 H Carbon Dioxide 30.2 Anion Gap 6 BUN 11 Creatinine 0.61 Estimated GFR Greater than 89 POC Glucose Random Glucose 95 Lactic Acid Calcium 7.7 L Calcium Adj for Albumin Phosphorus 2.6 Magnesium 2.1 Total Bilirubin 0.3 AST 15 ALT 12 Alkaline Phosphatase 44 L Ammonia Total Protein 6.2 L D Albumin 2.5 L Lipase 66 L TSH 0.387 Nasal Screen MRSA (PCR) 03/01/18 03/01/18 03/01/18 05:26 05:26 05:32 WBC RBC Hgb Hct MCV MCH MCHC RDW Plt Count MPV Neut % (Auto) Lymph % (Auto) [place] % (Auto) Eos % (Auto) Baso % (Auto) Neut # (Auto) Lymph # (Auto) [place] # (Auto) Eos # (Auto) Baso # (Auto) WBC Differential Differential Comment PT INR Sodium Potassium Chloride Carbon Dioxide Anion Gap BUN Creatinine Estimated GFR POC Glucose 97 Random Glucose Lactic Acid 0.6 Calcium Calcium Adj for Albumin Phosphorus Magnesium Total Bilirubin AST ALT Alkaline Phosphatase Ammonia 17 Total Protein Albumin Lipase TSH Nasal Screen MRSA (PCR) Result Diagrams: 03/01/18 05:26 03/01/18 05:26 Microbiology: Microbiology 02/27/18 22:08 Gram Stain - Final Sputum - Nasal Tracheal Aspirate Sputum Culture - Preliminary Immature growth - reincubate 02/28/18 09:00 Influenza Types A,B Antigen - Final Nasal Wash Negative for FLU A and B antigen Infection due to influenza A or B cannot be ruled out since the antigen present in the sample may be below the detection limit of the test. Imaging: Chest X-Ray 03/01/18 06:00 CONCLUSION: Suspected mid and lower left lung atelectasis or consolidation with a left effusion. Minimal atelectasis or consolidation at the right base. Procedures: 02/27/18-central line placement . Patient/Family Conference Family Conference Location: Bedside Issues Discussed: * Palliative care role, purpose, approach * Additional medical, psychosocial, and spiritual history * Patients general health, functional status, and cognitive changes in the months leading up to the current hospitalization * Patient/family understanding of the current medical problems * Patient/family understanding of prognosis * Patients goals of care as best understood from advance directives and/or conversations and/or values * Current medical treatment options and benefits/burdens of those options * Likely scenarios comparing ongoing aggressive care with a transition to comfort measures only * Questions answered to the best of my ability * Introduced hospice philosophy and benefits * Palliative care contact information provided Assessment and Plan - Disease Oriented Problem List (1) Acute respiratory failure (2) Chronic obstructive pulmonary disease (3) Normocytic anemia (4) Schizophrenic disorder (5) Community acquired pneumonia - Symptom Scale (1) Dyspnea 0-10 Scale: Unable to quantify Comment: Patient has history of CHF, COPD and is on home O2 2 L nasal cannula. (2) Confusion 0-10 Scale: Unable to quantify Comment: History of dementia, schizoaffective schizophrenia. Patient came in with altered mentation. (3) At risk for pain 0-10 Scale: Unable to quantify Comment: Patient may experience pain from bedbound status, medical interventions like IVs Pertinent Non-Medical Issues: Psychosocial: Patient is originally from [place]. She moved to [facility] at age 15. She is . She has 3 adult children daughters Sofia Cisneros, Carmela Morrissey and son Benji Morrissey. Patient was a homemaker. Patient has resided in assisted living facility since the late s. She currently resides at [facility] in [place]. Spiritual: Patient is Quaker. Open to visit from a property condition assessor. 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 Legal: According to patient's daughter Blayne Black, patient has DURABLE POWER OF ASSIGNMENT AGENT including healthcare and DPOA is Blayne Black. Ethical issues impacting care: None identified at this time. Important Contacts: Self stated DPOA -daughter-Sofia [phone] . Prognosis: Ms. Morrissey is a 87 years old female with a past medical history of chronic obstructive pulmonary disease, congestive heart failure, on 2 L home oxygen, hypertension, anxiety, history of aspiration pneumonia, epilepsy, dementia and schizoaffective schizophrenia. Patient was a transfer from [facility] on 02/27/18. She was found to be altered and was taken to the emergency room where she was noted to be significantly hypoxic. Clinical course complicated with dyspnea and altered mental status. Given multiple ongoing comorbidities, patient remains at high risk for further complications, deterioration and decline. Code Status: No Code DNR Plan: PLAN: Legal decision maker: Patient has a history of dementia, and schizophrenia. She came in with confusion and remains confused at time of examination. It is not known whether the patient will regain capacity to participate in medical decision making. Her daughter, Sofia Cisneros stated that she is patient's DURABLE POWER OF ASSIGNMENT AGENT including healthcare. (Daughter will bring copies to the hospital). Goals: Aggressive short of no code. Patient is a DNR/DNI. Lengthy discussion with patient's daughter regarding patient's medical status. Patient' s daughter feels she has reached a point where she should consider transitioning him mother to comfort care only through hospice. At this time she would want to maximize medical treatment while patient is still in the hospital and is interested in transitioning patient to comfort care with hospice at time of medical discharge. Informative hospice consult placed. CODE STATUS: No code DNR/DNI SYMPTOMS: * Dyspnea:Patient has history of CHF, COPD and is on home O2 2 L nasal cannula. Chest CT demonstrated dense left lower lobe consolidation. She required use of BiPAP and is now been weaned to O2 2 L nasal cannula with O2 sats in the mid 90s. Patient is on antibiotics and duo nebs. No recommendations at this time. * Confusion:History of dementia, schizoaffective schizophrenia. Patient came in with altered mentation. Patient's urine culture collected on 02/27/18 positive for Escherichia coli. Patient is on Seroquel and risperidone. Continue with neurochecks. * At risk for pain:Patient may experience pain from bedbound status, medical interventions like IVs. Hydromorphone 0.25 mg IVP prn available. Continue to monitor for pain Palliative care will continue to follow the patient during hospital course as condition evolves, to assist patient/decision-maker with understanding of their medical conditions, weighing benefits/burdens of treatment options, for clarification of goals of treatment. Additionally will assist with any symptoms of palliative concern Appreciation Thank you for the opportunity to participate in the care of Avelina Morrissey. Attestation Attestation: To help prompt me to consider important information that might be impacting today's encounter and assessment, information from prior notes written by myself or my colleagues may have been "brought forward" into today's note. My signature on this note, however, is an attestation that I personally performed the exam, history, and/or decision-making noted today, and, unless otherwise indicated, the interactions with patient, family, and staff as well as the review of records all occurred today. I also attest that the listed assessment and stated plan reflect my best clinical judgment today based on the combination of historical information, prior notes, and today's exam/ interactions. When time spent is documented, it refers only to time spent today by the signer, or if indicated, combined time spent today by collaborating physician/nurse practitioner.
[2018-03-01] MEDS ORDERED: Dextrose 50% in Water Syringe 50 ML ONE (12:26)
[2018-03-01] MEDS: QUEtiapine 25 MG Tablet PO SCH (13:19)
[2018-03-01] MEDS: Senna/Docusate Sodium 8.6/50 MG Tablet PO SCH ×2 (13:19→22:13)
[2018-03-01] MEDS: Ferrous Sulfate 325 MG Tablet PO SCH (13:20)
[2018-03-01] MEDS: Polyethylene Glycol 3350 17 GM Packet PO SCH ×2 (13:20→22:13)
[2018-03-01] MEDS: Sodium Chloride 0.9% 2 ML Flush BID IV.FLUSH SCH ×2 (13:20→22:13)
[2018-03-01] MEDS: levETIRAcetam 250 MG Tablet PO SCH ×2 (13:20→22:12)
[2018-03-01] MEDS: Pantoprazole Inj 40 MG Vial IV.PUSH SCH (13:21)
[2018-03-01] MEDS: Azithromycin Inj 500 MG in Sodium Chlor 0.9% Inj 250 ML IV.SIG SCH (22:12)
[2018-03-01] MEDS: Melatonin 5 MG Tablet PO PRN (22:14)
[2018-03-02] MEDS: Chlorhexidine Gluconate 2% 1 Pack (2 Cloths) TOPICAL SCH (03:33)
[2018-03-02] MEDS: Piperacil/Tazo 4.5 GM Premix 4.5 GM/100 ML BAG IV.SIG SCH ×4 (03:54→21:18)
[2018-03-02] MEDS: Insulin NovoLIN Regular Correctional Sugar Inj SQ SCH ×3 (06:08→17:21)
[2018-03-02] MEDS: Pantoprazole Inj 40 MG Vial IV.PUSH SCH (06:08)
[2018-03-02] MEDS: Heparin - SQ 10,000 UNITS/ML Vial SQ SCH ×3 (06:08→21:12)
--- NOTE | 2018-03-02 06:08 | XR ---
EXAM DATE: 03/02/2018 5:42 AM EST AGE/SEX: 87 years / Female INDICATIONS: Difficulty breathing. CLINICAL DATA: This is the patient's subsequent encounter. Patient reports that signs and symptoms h ave been present for 4 - 6 days and indicates a pain score of Nonresponsive. MEDICAL/SURGICAL HISTORY: . Congestive heart failure. Chronic obstructive pulmonary disease. H ypertension. Anxiety. Epilepsy. Schizophrenia. . shoulder surgery . COMPARISON: [facility] [place], CHEST 1V SINGLE AP, 03/01/2018. . FINDINGS: The heart size is normal. Lungs demonstrate diffuse mixed interstitial and alveolar consolidation. Th ere is at least a mild left pleural effusion. There are deformities from prior right rib fractures. T here is a vernell seen through the proximal right humerus. There appears to be very prominent remodeling of the right humeral head. The patient is turned towards the left. CONCLUSION: Diffuse mixed interstitial and alveolar consolidation likely related to worsening edema. Left effusion. Electronically signed by: Lonnie Cardenas MD Board Certified Radiologist 03/02/2018 6:07 AM EST
[2018-03-02 07:33] LABS: Baso % (Auto) 0.4 % (0.0-2.0); Eos # (Auto) 0.1 th/mm3 (0.0-0.4); Eos % (Auto) 0.8 % (0.0-4.0); Lymph # (Auto) 0.4 th/mm3 (1.0-4.8); Lymph % (Auto) 5.9 % (9.0-44.0); Mean Corpuscular HGB Conc 32.1 % (32.0-36.0); Mean Corpuscular Hemoglobin 30.8 pg (27.0-34.0); Mean Platelet Volume 8.9 fL (7.0-11.0); Mono # (Auto) 0.4 th/mm3 (0.0-0.9); Mono % (Auto) 6.2 % (0.0-8.0); Neut # (Auto) 5.6 th/mm3 (1.8-7.7); Neut % (Auto) 86.7 % (16.0-70.0); Platelet Count 193 th/mm3 (150-450); Red Blood Count 3.23 mil/mm3 (4.00-5.30); Red Cell Distribution Width 15.1 % (11.6-17.2); White Blood Count 6.5 th/mm3 (4.0-11.0)
[2018-03-02 07:53] LABS: Anion Gap 6 meq/L (5-15); Blood Urea Nitrogen 4 mg/dL (7-18); Carbon Dioxide 32.8 meq/L (21.0-32.0); Chloride 104 meq/L (98-107); Glomerular Filtration Rate Greater Than 89 mL/min (>89); Glucose,Random 76 mg/dL (74-106); Magnesium 1.8 mg/dL (1.5-2.5); Potassium 3.9 meq/L (3.5-5.1); Sodium 143 meq/L (136-145)
[2018-03-02] MEDS: Senna/Docusate Sodium 8.6/50 MG Tablet PO SCH ×2 (09:46→21:08)
[2018-03-02] MEDS: Vancomycin Inj 1,000 MG in Sodium Chlor 0.9% Inj 250 ML IV.SIG SCH (09:46)
[2018-03-02] MEDS: Polyethylene Glycol 3350 17 GM Packet PO SCH ×2 (09:46→21:13)
[2018-03-02] MEDS: Sodium Chloride 0.9% 2 ML Flush BID IV.FLUSH SCH ×2 (09:46→21:09)
--- NOTE | 2018-03-02 10:39 | P.PNIM ---
Subjective Interval history: Follow-up visit CHF, COPD, pneumonia aspiration. Patient seen and examined today. Daughter at the bedside. Patient is awake. Responds to some questions and commands. States she is okay. Denies pain and discomfort. Denies SOB/ dyspnea. Denies chest pain. Denies fevers, n/v/d. Denies dysuria. Physical Exam Vital signs: Vital Signs 03/01/18 11:00 03/01/18 11:31 03/01/18 12:00 Temperature Pulse Rate 63 64 56 L Respiratory Rate 13 11 L 15 Blood Pressure 148/65 H 118/57 L 133/63 Pulse Oximetry 95 94 L 99 03/01/18 16:00 03/01/18 17:02 03/01/18 20:00 Temperature 98.2 F 98.6 F Pulse Rate 74 75 76 Respiratory Rate 15 16 17 Blood Pressure 141/64 H 143/65 H Pulse Oximetry 99 96 95 03/01/18 21:06 03/01/18 23:21 03/02/18 00:00 Temperature 98 F Pulse Rate 75 76 77 Respiratory Rate 15 14 16 Blood Pressure 112/55 L Pulse Oximetry 97 95 95 03/02/18 07:59 03/02/18 08:00 Temperature 97.6 F Pulse Rate 75 89 Respiratory Rate 18 17 Blood Pressure 179/77 H Pulse Oximetry 96 96 Intake & Output 03/01/18 03/02/18 03/02/18 18:59 06:59 18:59 Intake Total 350 / 350 650 / 650 Balance 350 / 350 650 / 650 Weight 53.2 kg Intake: IV 350 / 350 550 / 550 Azithromycin Inj 500 MG In NS 250 / 250 Inj 250 ML @ 250 mls/hr IV.SIG Q24H VASYL Rx#:[id number] Zosyn 4.5 GM Premix 4.5 gm In 100 / 100 300 / 300 100 ml @ 200 mls/hr IV.SIG Q6H VASYL Rx#:[id number] Vancomycin Inj 1,000 MG In NS 250 / 250 Inj 250 ML @ 250 mls/hr IV.SIG Q24H VASYL Rx#:[id number] Oral 100 / 100 Other: # Voids 1 3 Date of Last Bowel Movement 03/01/18 # Bowel Movements 3 Narrative: GENERAL: This is an elderly female, in no apparent distress. SKIN: Warm and dry. HEENT: Normocephalic. Pupils equal round and reactive. Nose without bleeding. Airway patent. NECK: Trachea midline. CARDIOVASCULAR: Regular rate and rhythm without murmurs, gallops, or rubs. RESPIRATORY: No wheezes, rales, or rhonchi. Left side diminished. GASTROINTESTINAL: Abdomen soft, non-tender, nondistended. Bowel Sounds hypoactive. MUSCULOSKELETAL: Extremities without clubbing, cyanosis, or edema. NEUROLOGICAL: Awake and alert. Moves all extremities. Normal speech. - Urinary Catheter Management Indwelling Urethral Catheter Cath placed during this visit: no Reason for continuing: Hourly intake/output Results - Labs CBC & Chem 7: 03/02/18 06:42 03/02/18 06:42 Laboratory Results - last 24 hr 03/01/18 03/01/18 03/01/18 12:23 12:56 18:04 WBC RBC Hgb Hct MCV MCH MCHC RDW Plt Count MPV Neut % (Auto) Lymph % (Auto) [place] % (Auto) Eos % (Auto) Baso % (Auto) Neut # (Auto) Lymph # (Auto) [place] # (Auto) Eos # (Auto) Baso # (Auto) WBC Differential Differential Comment Sodium Potassium Chloride Carbon Dioxide Anion Gap BUN Creatinine Estimated GFR POC Glucose 57 L 136 H 119 H Random Glucose Calcium Phosphorus Magnesium 03/01/18 03/02/18 03/02/18 22:21 06:06 06:42 WBC 6.5 RBC 3.23 L Hgb 10.0 L Hct 31.0 L MCV 96.0 MCH 30.8 MCHC 32.1 RDW 15.1 Plt Count 193 MPV 8.9 Neut % (Auto) 86.7 H Lymph % (Auto) 5.9 L [place] % (Auto) 6.2 Eos % (Auto) 0.8 Baso % (Auto) 0.4 Neut # (Auto) 5.6 Lymph # (Auto) 0.4 L [place] # (Auto) 0.4 Eos # (Auto) 0.1 Baso # (Auto) 0.0 WBC Differential . Differential Comment Auto diff final Sodium Potassium Chloride Carbon Dioxide Anion Gap BUN Creatinine Estimated GFR POC Glucose 80 91 Random Glucose Calcium Phosphorus Magnesium 03/02/18 06:42 WBC RBC Hgb Hct MCV MCH MCHC RDW Plt Count MPV Neut % (Auto) Lymph % (Auto) [place] % (Auto) Eos % (Auto) Baso % (Auto) Neut # (Auto) Lymph # (Auto) [place] # (Auto) Eos # (Auto) Baso # (Auto) WBC Differential Differential Comment Sodium 143 Potassium 3.9 Chloride 104 Carbon Dioxide 32.8 H Anion Gap 6 BUN 4 L Creatinine 0.55 Estimated GFR Greater than 89 POC Glucose Random Glucose 76 Calcium 8.0 L Phosphorus 3.0 Magnesium 1.8 Microbiology 02/27/18 22:08 Sputum - Nasal Tracheal Aspirate Gram Stain - Final 02/27/18 22:08 Sputum - Nasal Tracheal Aspirate Sputum Culture - Final Heavy growth normal respiratory cullen - Imaging Impressions Chest X-Ray 03/02/18 06:00 CONCLUSION: Diffuse mixed interstitial and alveolar consolidation likely related to worsening edema. Left effusion. Assessment and Plan - Plan 87yo female with history of CHF, COPD, found to be altered taken to OSH where she was significantly hypoxic. Severe sepsis Acute respiratory failure secondary to aspiration, community-acquired pneumonia COPD, severe Urinary tract infection -02 dependent -CT pulmonary angiogram at [facility] revealed diffuse bilateral pulmonary infiltrates left greater than right. No central pulmonary embolism. Emphysematous changes. -Lactic acid trending down. Negative influenza. Negative blood cultures to date. -IV antibiotics azithromycin, Zosyn, vancomycin. Will switch over to p.o. -Sputum culture growing normal respiratory cullen -Patient has been afebrile times 3 days, WBC trended down -Augmentin twice daily -Continue with Zosyn for now for urinary tract infection, will switch over to tetracycline per sensitivities -Repeat chest x-ray Diffuse mixed interstitial and alveolar consolidation likely related to worsening edema. Left effusion. Lasix IV x1 dose -We will restart Lasix -Palliative Care following. DNR/DNI. Family wants patient to go back to [facility] under hospice care. Schizophrenic disorder NOS Depressive disorder NOS Seizure disorder NOS -Continue levetiracetam, quetiapine, Risperdal, citalopram -Holding temazepam 15 mg at night -Continue melatonin 3 mg at night for insomnia -Currently hydromorphone 0.2 mg IV every 2 hours as needed breakthrough pain Congestive heart failure unknown etiology History of essential hypertension -Restart medications of amlodipine lower dose -Restart furosemide 20 mg daily valerie -EKG on admission revealed sinus bradycardia with QT prolongation. Moderate protein calorie malnutrition with hypoalbuminemia -Currently very diet -Speech therapy evaluate and treat -Pantoprazole for GI prophylaxis Acute hyperglycemia -Check TSH 0.387 -ISS. Monitor Accucheck Normocytic anemia -Monitor CBC daily. Follow trends. -No indication for transfusion of blood products at this time. Palliative Care following. DNR/DNI. Family wants patient to go back to [facility] under hospice care. DVT Prop heparin DNR Discussed Condition With: Patient, daughter, nursing Discharge Planning: Plan to DC back to [facility] tomorrow, under hospice care
[2018-03-02] MEDS ORDERED: amLODIPine 10 MG Tablet PO SCH (10:45)
[2018-03-02] MEDS ORDERED: amLODIPine 5 MG Tablet PO SCH (10:49)
[2018-03-02] MEDS: levETIRAcetam 250 MG Tablet PO SCH ×2 (11:46→21:08)
[2018-03-02] MEDS: QUEtiapine 25 MG Tablet PO SCH (11:47)
[2018-03-02] MEDS: Ferrous Sulfate 325 MG Tablet PO SCH (11:47)
--- NOTE | 2018-03-02 17:26 | ECHRPT ---
Indication: HEART FAILURE CONCLUSIONS The left ventricular systolic function is normal with an estimated ejection fraction in the range of 55-60%. Trace mitral valve regurgitation. Mild aortic valve regurgitation. There is mild tricuspid valve regurgitation. Bilateral pleural effusions noted BP: / HR: Rhythm: MEASUREMENTS (Male / Female) Normal Values Technical Quality: 2D ECHO LV Diastolic Diameter PLAX 4.1 cm 4.2 - 5.9 / 3.9 - 5.3 cm LV Systolic Diameter PLAX 3.1 cm IVS Diastolic Thickness 0.9 cm 0.6 - 1.0 / 0.6 - 0.9 cm LVPW Diastolic Thickness 0.9 cm 0.6 - 1.0 / 0.6 - 0.9 cm LV Relative Wall Thickness 0.4 RV Internal Dim ED PLAX 3.4 cm LVOT Diameter 1.6 cm Aortic Root Diameter 2.4 cm LA Systolic Diameter LX 3.0 cm 3.0 - 4.0 / 2.7 - 3.8 cm DOPPLER AV Peak Velocity 208.0 cm/s AV Peak Gradient 17.3 mmHg AV Mean Gradient 10.0 mmHg AV Velocity Time Integral 42.3 cm AI Peak Velocity 238.0 cm/s AI Peak Gradient 22.7 mmHg AI Pressure Half Time 489.0 ms LVOT Peak Velocity 183.0 cm/s LVOT Peak Gradient 13.4 mmHg LVOT Velocity Time Integral 41.7 cm AV Area Cont Eq vti 2.0 cm AV Area Cont Eq pk 1.8 cm TR Peak Velocity 330.0 cm/s TR Peak Gradient 43.6 mmHg Right Atrial Pressure 10.0 mmHg Pulmonary Artery Systolic Pressu 53.6 mmHg Right Ventricular Systolic Press 53.6 mmHg PV Peak Velocity 105.0 cm/s PV Peak Gradient 4.4 mmHg FINDINGS LEFT VENTRICLE Normal left ventricular size. Wall thickness is normal. The left ventricular systolic function is normal with an estimated ejection fraction in the range of 55-60%. No regional wall motion abnormalities are present. RIGHT VENTRICLE Normal right ventricular size and systolic function. LEFT ATRIUM The left atrial size is mildly dilated. RIGHT ATRIUM The right atrial size is normal. ATRIAL SEPTUM Normal atrial septal thickness without atrial level shunting by limited color doppler interrogation. AORTA The aortic root and proximal ascending aorta are normal in size on limited imaging. MITRAL VALVE Structurally normal mitral valve. Trace mitral valve regurgitation. Moderate mitral annular calcification. No mitral valve stenosis. AORTIC VALVE Diffuse calcification of the aortic valve. Mild aortic valve regurgitation. No aortic valve stenosis. TRICUSPID VALVE Structurally normal tricuspid valve. There is mild tricuspid valve regurgitation. The estimated pulmonary arterial pressure is 54 mmHg. PULMONARY VALVE No pulmonary valve regurgitation or stenosis. VESSELS The inferior vena cava is normal in size. PERICARDIUM Bilateral pleural effusions noted Sumanth Steward DO (Electronically Signed) Final Date:02 March 2018 17:25
[2018-03-02] MEDS: Amoxicillin/Clavulanate 875/125 MG Tablet PO SCH (21:07)
[2018-03-02] MEDS: Melatonin 5 MG Tablet PO PRN (21:08)
[2018-03-03] MEDS: Insulin NovoLIN Regular Correctional Sugar Inj SQ SCH ×3 (01:39→14:25)
[2018-03-03] MEDS: Piperacil/Tazo 4.5 GM Premix 4.5 GM/100 ML BAG IV.SIG SCH ×2 (05:43→09:58)
[2018-03-03] MEDS: Heparin - SQ 10,000 UNITS/ML Vial SQ SCH ×2 (05:43→14:26)
[2018-03-03] MEDS: Chlorhexidine Gluconate 2% 1 Pack (2 Cloths) TOPICAL SCH (05:44)
[2018-03-03] MEDS ORDERED: Pharmacy Ordered Lab Info OTHER ONE (07:45)
[2018-03-03 08:24] VITALS: RESP 18
[2018-03-03] MEDS ORDERED: Furosemide 20 MG Tablet PO SCH (09:00)
[2018-03-03] MEDS ORDERED: Pantoprazole Sodium 20 MG DR Tablet PO SCH (09:00)
[2018-03-03] MEDS ORDERED: Docusate Sodium 100 MG Capsule PO SCH (09:00)
[2018-03-03 09:39] VITALS: BP 127/62; TEMP 98.4; O2SAT 92
[2018-03-03] MEDS: Ferrous Sulfate 325 MG Tablet PO SCH (09:57)
[2018-03-03] MEDS: Amoxicillin/Clavulanate 875/125 MG Tablet PO SCH (09:57)
[2018-03-03] MEDS: QUEtiapine 25 MG Tablet PO SCH (09:57)
[2018-03-03] MEDS: levETIRAcetam 250 MG Tablet PO SCH (09:57)
[2018-03-03] MEDS: Sodium Chloride 0.9% 2 ML Flush BID IV.FLUSH SCH (09:59)
[2018-03-03] MEDS: Polyethylene Glycol 3350 17 GM Packet PO SCH (09:59)
[2018-03-03] MEDS: Senna/Docusate Sodium 8.6/50 MG Tablet PO SCH (09:59)
--- NOTE | 2018-03-03 10:51 | P.DS ---
Date of admission: 02/27/18 19:05 Primary care physician: UNKNOWN Attending physician on discharge: Meño Saldana Anticipated date of discharge: 03/03/18 Brief History from admission: 87yF with history of CHF, COPD, found to be altered. taken to OSH where she was significantly hypoxic. CT chest/CXR demonstrated dense LLL consolidation. wbc elevated. patient is DNR/DNI and daughter wishes to honor this. placed on BiPAP. given ivf, but persistently hypotensive, so placed on norepinephrine. ROS unobtainable due to her altered mentation. no additional information available from the patient- remainder of the history from the daughter and from medical record. Patient update on day of discharge: Follow-up visit CHF, COPD, aspiration pneumonia. Patient seen and examined today. Daughter at the bedside. Patient states that when okay. More alert and awake. Follows some commands. More conversant. Denies pain or discomfort. No shortness of breath or dyspnea. As per daughter, patient needing speech therapy evaluation so that when she goes back to her assisted living facility with hospice they would know what her diet consistency. Otherwise no acute issues overnight. As per daughter, patient slept well last night. DS: Diagnosis - Discharge Diagnosis (1) Pneumonia, aspiration Status: Acute (2) Confusion Status: Acute (3) Schizophrenic disorder Status: Chronic (4) Chronic obstructive pulmonary disease Status: Chronic DS: Medications - Discharge Medications Prescriptions: amlodipine [Norvasc] 5 mg PO DAILY #30 tab amoxicillin-pot clavulanate 1 tab PO Q12HR 5 Days tab ipratropium-albuterol 1 amp NEB Q4HR NEB 30 Days ml tetracycline 500 mg PO Q12H 5 Days #10 cap DS: Summary Hospital Course: 87yo female with history of CHF, COPD, found to be altered taken to OSH where she was significantly hypoxic. She came from assisted living facility. Patient found to have severe sepsis acute respiratory failure secondary to aspiration pneumonia, community-acquired. History of COPD admission. Patient is O2 dependent and is living facility. CT pulmonary angiogram at [facility] revealed diffuse bilateral pulmonary infiltrates left greater than right. No central pulmonary embolism. Emphysematous changes. She was treated in the critical care unit and was on vasopressors initially. She is negative for influenza. Blood cultures have been negative to date. She was given IV antibiotics azithromycin, Zosyn, vancomycin switch over to p.o. Augmentin when she gets discharged. Sputum culture growing normal respiratory cullen. Patient has been afebrile times 4 days, with WBC within normal now. She was found to have urinary tract infection, she will continue with p.o. in outpatient. Repeat chest x-ray showed Diffuse mixed interstitial and alveolar consolidation likely related to worsening edema. Left effusion. IV Lasix has been given. Patient will restart her Lasix daily. Her chronic condition such as congestive heart failure, HTN was managed with continuing her home medications post vasopressor use. Decrease dose of Norvasc to 5 mg. Patient also has schizophrenia disorder, depressive disorder, seizure disorder. She continued to be on Keppra, Seroquel, risperidone, citalopram. Temazepam was held at night secondary to respiratory failure but was continued on melatonin for insomnia. And she will transition to hospice care back in her assisted living facility. Patient is DNR/ DNI. Discussed and explained sensitivity with daughter. All questions answered. Patient has met maximal benefits of hospitalization. Stable for discharge with hospice care in [facility]. - Time Spent with Patient Total time spent providing and/or coordinating discharge services: Greater than 30 minutes - Quality: VTE Deep Vein Thrombosis/Pulmonary Embolism Present on Admission: No Exam Vital signs: Vital Signs 03/02/18 12:00 03/02/18 12:44 03/02/18 16:00 Temperature 98.7 F 98.3 F Pulse Rate 83 70 75 Respiratory Rate 16 16 17 Blood Pressure 123/56 L 103/50 L Pulse Oximetry 94 L 91 L 03/02/18 16:32 03/02/18 20:00 03/02/18 23:43 Temperature 97.6 F Pulse Rate 70 73 70 Respiratory Rate 16 19 15 Blood Pressure 121/60 Pulse Oximetry 96 03/03/18 00:00 03/03/18 02:51 03/03/18 07:00 Temperature 97.4 F L Pulse Rate 71 66 67 Respiratory Rate 21 16 18 Blood Pressure 100/53 L Pulse Oximetry 93 L 03/03/18 08:00 Temperature 98.4 F Pulse Rate 73 Respiratory Rate 18 Blood Pressure 127/62 Pulse Oximetry 92 L Intake & Output 03/02/18 03/03/18 03/03/18 18:59 06:59 18:59 Intake Total 450 / 450 200 / 200 Output Total 500 / 500 Balance 450 / 450 -300 / -300 Weight 53 kg Intake: IV 450 / 450 200 / 200 Zosyn 4.5 GM Premix 4.5 gm In 200 / 200 200 / 200 100 ml @ 200 mls/hr IV.SIG Q6H VASYL Rx#:[id number] Vancomycin Inj 1,000 MG In NS 250 / 250 Inj 250 ML @ 250 mls/hr IV.SIG Q24H VASYL Rx#:[id number] Output: Urine 500 / 500 Other: # Voids 1 1 Narrative: GENERAL: This is an elderly female, in no apparent distress. SKIN: Warm and dry. HEENT: Normocephalic. Pupils equal round and reactive. Nose without bleeding. Airway patent. NECK: Trachea midline. CARDIOVASCULAR: Regular rate and rhythm without murmurs, gallops, or rubs. RESPIRATORY: No wheezes, rales, or rhonchi. Left side diminished. GASTROINTESTINAL: Abdomen soft, non-tender, nondistended. Bowel Sounds hypoactive. MUSCULOSKELETAL: Extremities without clubbing, cyanosis, or edema. NEUROLOGICAL: Awake and alert. Moves all extremities. Normal speech. Results Procedures completed during hospitalization: None Labs on day of discharge: Labs from last 24 hours 03/03/18 03/02/18 03/02/18 05:46 21:11 16:29 POC Glucose 90 92 109 03/02/18 11:39 POC Glucose 79 - Impressions ITS Impressions Chest X-Ray 03/02/18 06:00 CONCLUSION: Diffuse mixed interstitial and alveolar consolidation likely related to worsening edema. Left effusion. Discharge Plan - Discharge Disposition Patient Disposition: [facility] - Discharge Condition Condition: Stable - Discharge Order Discharge Orders: Discharge Order (Routine); Ordered 03/03/18 Ordered By: Frida Mejia - Physicians Team Primary Care Provider: UNKNOWN, Attending Provider: Meño Saldana Other Providers: Viviana Kelly MD - Rxs /Orders / Referrals /Forms Prescriptions: New amlodipine [Norvasc] 5 mg Tablet 5 mg PO DAILY Qty: 30 RF: 0 amoxicillin-pot clavulanate 875-125 mg Tablet 1 tab PO Q12HR 5 Days RF: 0 ipratropium-albuterol 0.5 mg-3 mg(2.5 mg base)/3 mL Solution For Nebulization 1 amp NEB Q4HR NEB 30 Days RF: 0 tetracycline 500 mg Capsule 500 mg PO Q12H 5 Days Qty: 10 RF: 0 Continue acetaminophen [Mapap (acetaminophen)] 500 mg Capsule 500 mg PO DAILY PRN (Reason: Pain) citalopram 40 mg Tablet 40 mg PO DAILY docusate sodium [Colace] 100 mg Capsule 100 mg PO DAILY ferrous sulfate 325 mg (65 mg iron) Tablet 325 mg PO DAILY furosemide 20 mg Tablet 10 mg PO DAILY ipratropium bromide 0.02 % Solution 2.5 ml INHALATION Q6-8H PRN (Reason: Shortness Of Breath Or Wheezing) levetiracetam 750 mg Tablet 750 mg PO BID melatonin 3 mg Tablet 3 mg PO HS PRN (Reason: Sleep) quetiapine [Seroquel] 25 mg Tablet 25 mg PO DAILY risperidone [Risperdal] 0.5 mg Tablet 0.5 mg PO BID temazepam 15 mg Capsule 15 mg PO HS Discontinued amlodipine 10 mg Tablet 10 mg PO DAILY Ambulatory Orders / Order Sets / DME: Nebulizer Adult Kit (1 kit) (Routine) Location: Determined by Patient Ordered By: Frida Mejia Referrals: Lonnie Fitzgerald [Other] - See Instructions (Follow up in 3-5 Days. Schedule an appointment.) UNKNOWN, [Primary Care Provider] - See Instructions - Post Discharge Care Plan Care Plan Goals: Discharge Care Plan Goals for Pneumonia You have been diagnosed with pneumonia. This is a serious lung infection. Most cases of pneumonia are caused by bacteria. Pneumonia most often occurs in older adults, young children, and people with chronic health problems. Directions to Meet your Goals: 1. Home care: * Take your medicine exactly as directed. Dont skip doses. Continue taking your antibiotics as until they are all gone, even if you start to feel better. This will prevent the pneumonia from coming back. * Drink at least 8 glasses of water daily, unless directed otherwise. This helps to loosen and thin secretions so that you can cough them up. * Use a cool-mist humidifier in your bedroom. Be sure to clean the humidifier daily. * Dont use medicines to suppress your cough unless your cough is dry, painful, or interferes with your sleep. Coughing up mucus is normal. You may use an expectorant if your doctor says its okay. * You can use warm compresses or a heating pad on the lowest setting to relieve chest discomfort. Use several times a day for 15-20 minutes at a time. To prevent injury to your skin, set the temperature to warm, not hot. Dont put the compress or pad directly on your skin. Make certain it has a cover or wrap it in a towel. This is to prevent skin munguia. * Get plenty of rest until your fever, shortness of breath, and chest pain go away. * Plan to get a flu shot every year. The flu is a common cause of pneumonia. Getting a flu shot every year can help prevent both the flu and pneumonia. 2. Getting the pneumococcal vaccine: * Talk with your doctor about getting the pneumococcal vaccine. Pneumococcal pneumonia is caused by bacteria that spread from person to person. It can cause minor problems, such as ear infections. But it can also turn into life- threatening illnesses of the lungs (pneumonia), the covering of the brain and spinal cord (meningitis), and the blood (bacteremia). * Make sure to ask your doctor if you should have the vaccine. Children under 2 years of age, adults over age 65, people with certain health conditions, and smokers are at the highest risk of pneumococcal disease. This vaccine can help prevent pneumococcal disease in both adults and children. 3. Follow-up care: Do Not miss your follow-up appointment. Keep up with all your appointments and yearly check ups 4. When to call your doctor: Call your doctor immediately if you have any of the following: Fever of 100.4F (38C) or higher, or as directed by your healthcare provider Mucus from the lungs (sputum) thats yellow, green, bloody, or smells bad Vomiting Any symptoms that get worse 5. Call 911: Call 911 right away if you have any of the following: Chest pain Trouble breathing Blue lips or fingernails
[2018-03-03 13:50] VITALS: PULSE 73
== END 2018-03-03 17:13 | DRG 871 ==
LOC: NEDDLT 12:08 → HIMC 19:05 → N07 03-01 14:00
PROVIDERS: ADMIT Hospitalist; ATTEND Hospitalist
CPT/HCPCS: 36556; 36569; 36600; 51702; 71010; 71045; 71275; 80048; 80053; 81001; 82040; 82140; 82550; 82805; 82948; 82962; 83520; 83605; 83690; 83735; 83880; 84100; 84443; 84484; 85025; 85610; 85730; 87040; 87070; 87077; 87086; 87186; 87205; 87275; 87276; 87641; 87804; 90761; 90765; 90767; 92526; 92610; 93005; 93308; 94002; 94640; 94650; 94651; 94656; 94664; 94665; 94668; 96361; 96365; 96367; 97162; 99291; C9113; G0195; J0456; J1644; J1940; J2543; J3370; J3475; J7030; J7040; J7050; Q9967